=== PATIENT | male | born 1945 | race Caucasian/White ===

== ENCOUNTER → 2017-06-04 | Outpatient (CLI) | payer MEDICARE, BC ==
[~2017-06-04] MED LIST: ALPHAGAN 10 ML10 ML OU; ANTIVERT 25MG25 MG PO; ATROVENT NASAL15 ML NS; CENTRUM MEN'S; COREG 3.123.125 MG/T; COZAAR 25MG25 MG/TAB PO; ELIQUIS 2.5; ELIQUIS 5MG PO; FOSAMAX 70MG TA70 MG PO; KLONOPIN WAFE0.25 MG PO; LIPITOR20 MG PO; MUCINEX 60600 MG/TA1; PACERONE100 MG; PULMICORT0.25 MG/2 IH; REMERON 15M15 MG/TA1 PO; TIMOLOL MALEATE5 M1 OU; TRAVATAN Z 5 ML5 ML OU; VITAMIN D 1001000 IU PO; VITAMINC1000TA
[2017-06-04 10:55] LABS: HEMATOCRIT 41.2 % (42.0-52.0); HEMOGLOBIN 14.1 g/dl (13.5-18.0); MEAN CELL VOLUME 95 fl (80.0-100.0); MEAN CORPUSCULAR HEMOGLOBIN 33 pg (27.0-31.0); MEAN CORPUSCULAR HGB CONC 34 g/dl (33.0-37.0); MEAN PLATELET VOLUME 9.4 fl (7.4-10.4); PLATELET COUNT 120 K/mm3 (130-400); RED BLOOD COUNT 4.34 M/mm3 (4.20-5.60); REDCELL DISTRIBUTION WIDTH-CV 14.1 % (11.5-14.5); WHITE BLOOD COUNT 7.1 K/mm3 (4.8-10.8)
[2017-06-04 11:05] LABS: ANION GAP 7 mmol/L (7-16); BLOOD UREA NITROGEN 24 mg/dL (9-20); CALCIUM 9.3 mg/dL (8.4-10.2); CARBON DIOXIDE 29 mmol/L (22-30); CHLORIDE 103 mmol/L (98-107); CREATININE, serum 0.94 mg/dL (0.66-1.25); GLUCOSE 73 mg/dL (74-106); POTASSIUM 4.1 mmol/L (3.4-5.0); SODIUM 138 mmol/L (137-145)
[2017-06-04 11:17] LABS: B-TYPE NATRIURETIC PEPTIDE 3300 pg/mL (0-125); TROPONIN-I < 0.012 ng/mL (0.000-0.034)
== END ==
LOC: COL.RAD 10:03
PROVIDERS: Internal Medicine Interventional Cardiology
DX: J44.9 Chronic obstructive pulmonary disease, unspecified (principal); I50.32 Chronic diastolic (congestive) heart failure

== ENCOUNTER 2017-07-31 08:25 | Outpatient (CLI) | payer MEDICARE, BC ==
[2017-07-31] VITALS (7 sets, daily range): BP systolic 100–124; BP diastolic 62–92; PULSE 70–101; TEMP 97.6–98.1
[~2017-07-31 08:25] MED LIST changes: -CENTRUM MEN'S; -COREG 3.123.125 MG/T; -ELIQUIS 2.5; -ELIQUIS 5MG PO; -FOSAMAX 70MG TA70 MG PO; -PACERONE100 MG; -VITAMIN D 1001000 IU PO
[2017-07-31 10:33] LABS: INR 1.3 (0.8-3.0)
[2017-07-31 11:14] LABS: THYROID STIMULATING HORMONE 6.03 uIU/mL (0.465-4.680)
[2017-07-31] MEDS ORDERED: COREG 3.123.125 MG/T (11:24)
[2017-07-31] MEDS ORDERED: ELIQUIS 2.5 (11:25)
[2017-07-31] MEDS ORDERED: PACERONE100 MG (11:26)
[2017-07-31] MEDS ORDERED: CENTRUM MEN'S (11:37)
[2017-07-31] MEDS ORDERED: VITAMINC1000TA (11:40)
[2017-07-31] MEDS ORDERED: FOSAMAX 70MG TA70 MG PO (11:43)
[2017-07-31] MEDS ORDERED: ELIQUIS 5MG PO (11:53)
[2017-07-31] MEDS ORDERED: ATROVENT NASAL15 ML NS (12:04)
[2017-07-31] MEDS ORDERED: VITAMIN D 1001000 IU PO (12:13)
--- NOTE | 2017-07-31 12:20 | NUR ---
PT HAS LEFT FLOOR FOR KAELA/CARDIOVERSION
--- NOTE | 2017-07-31 14:13 | NUR ---
DR HARDIN HERE, ANESTHESIA AND ECHO HERE 1358-TIME OUT PERFORMED 1400- KAELA PROBE INSERTED WITHOUT DIFFICULTY AFTER PT SEDATED BY ANESTHESIA 1401-MULTIPLE IMAGES OBTAINED VIA KAELA 1406- SUCCESSFUL SYNCHRONISED CARDIOVERSION PERFORMED AT 100 J[address] 1412- ANESTHESIA OUT OF ROOM, PROCEDURE COMPLETE 1417-REPORT CALLED TO FLOOR NURSE
--- NOTE | 2017-07-31 14:15 | NUR ---
Pt has returned from procedure. Post op vitals to be monitored closely. Pt stable. Will continue to monitor.
--- NOTE | 2017-07-31 16:43 | NUR ---
Pt d/c home via wheelchair. Malgorzata accompanied pt and .
[2017-11-25] MEDS ORDERED: COREG 6.256.25 MG/TA PO (08:00)
[2017-11-25] MEDS ORDERED: KLONOPIN2 MG PO (08:16)
[2017-11-25] MEDS ORDERED: ASPIRIN 81M81 MG/TA2 PO (08:17)
[2017-11-25] MEDS ORDERED: ATROVENT NASAL15 ML NS (08:17)
[2017-11-25] MEDS ORDERED: VITAMINC1000TA PO (08:18)
[2017-11-25] MEDS ORDERED: CALCIUM CARBON650 M2 PO (08:18)
[2018-12-04] MEDS ORDERED: COUMADIN 1010 MG/TAB PO (11:27)
[2018-12-04] MEDS ORDERED: ASPIRIN E.C. 8181 MG PO (11:28)
[2018-12-06] MEDS ORDERED: BETAPACE 80MG80 MG PO (09:17)
== END 2017-07-31 16:44 | disposition home or self-care (01) ==
LOC: EUO 08:25 → MEDICAL 08:25 → EUO 16:44
PROVIDERS: Internal Medicine Interventional Cardiology
DX: I48.1 Persistent atrial fibrillation (principal); I25.10 Atherosclerotic heart disease of native coronary artery without angina pectoris; I50.9 Heart failure, unspecified; Z95.0 Presence of cardiac pacemaker; Z95.1 Presence of aortocoronary bypass graft; Z98.890 Other specified postprocedural states
CPT/HCPCS: OP; G9654; J2704; J7030

== ENCOUNTER → 2017-09-04 | Outpatient (CLI) | payer MEDICARE, BC ==
[~2017-09-04] MED LIST changes: +CENTRUM MEN'S; +COREG 3.123.125 MG/T; +ELIQUIS 2.5; +ELIQUIS 5MG PO; +FOSAMAX 70MG TA70 MG PO; +PACERONE100 MG; +VITAMIN D 1001000 IU PO
[2017-09-04 16:26] LABS: CALCIUM 8.7 mg/dL (8.4-10.2); CREATININE, serum 1.67 mg/dL (0.66-1.25); POTASSIUM 4.2 mmol/L (3.4-5.0)
== END ==
LOC: COL.LAB 15:28
PROVIDERS: Internal Medicine Cardiovascular Disease
DX: I48.1 Persistent atrial fibrillation (principal)

== ENCOUNTER → 2018-01-20 | Outpatient (CLI) | payer MEDICARE, BC ==
[~2018-01-20] MED LIST changes: +ASPIRIN 81M81 MG/TA2 PO; +CALCIUM CARBON650 M2 PO; +COREG 6.256.25 MG/TA PO; +KLONOPIN2 MG PO; +VITAMINC1000TA PO
[2018-01-20 08:56] LABS: CALCIUM 8.8 mg/dL (8.4-10.2); CREATININE, serum 1.14 mg/dL (0.66-1.25); POTASSIUM 4.6 mmol/L (3.4-5.0)
== END ==
LOC: COL.LAB 08:27
DX: I48.1 Persistent atrial fibrillation (principal)

== ENCOUNTER 2019-01-01 08:22 | Inpatient (IN) | payer MEDICARE, BC ==
[~2019-01-01] VITALS: Ht 182.9 cm; Wt 79.9 kg
[2019-01-01] VITALS (9 sets, daily range): BP systolic 94–123; BP diastolic 55–100; PULSE 58–91; TEMP 97.4–98.8
[~2019-01-01 08:22] MED LIST changes: +ASPIRIN E.C. 8181 MG PO; +BETAPACE 80MG80 MG PO; +COUMADIN 1010 MG/TAB PO
--- NOTE | 2019-01-01 09:15 | NUR ---
Pt arrived to room 317 ambulatory with admissions staff. Pt oriented to room and call light system. Will complete assessment. Pt's is at the bedside; all questions answered. Pt is sitting up in the chair at this time and he denies further needs. Call light within reach, will continue to monitor.
[2019-01-01 10:39] LABS: INR 3.4 (0.8-3.0); PROTHROMBIN TIME 38.3 SECONDS (9.7-12.8)
[2019-01-01 10:44] LABS: CALCIUM 8.6 mg/dL (8.4-10.2); CREATININE, serum 1.01 mg/dL (0.66-1.25); MAGNESIUM 2.1 mg/dL (1.6-2.3); POTASSIUM 4.1 mmol/L (3.4-5.0)
[2019-01-01 11:15] LABS: THYROID STIMULATING HORMONE 2.49 uIU/mL (0.465-4.680)
--- NOTE | 2019-01-01 14:53 | NUR ---
Pt left the floor at this time for procedure.
--- NOTE | 2019-01-01 15:03 | NUR ---
MEDICATIONS GIVEN BY ANESTHESIA. RN AT BEDSIDE TO MONITOR WELL, AND WILL RECEIVE HANDOFF FROM ANESTHESIA WHEN APPROPRIATE. SEE MERGE REPORT FOR BUGGYMAN TIMES. ULTRASOUND ALSO AT BEDSIDE FOR KAELA.
--- NOTE | 2019-01-01 16:00 | NUR ---
Pt returned to room 317 via bed. Pt is AXO X3 and he denies having any pain at this time. Pt's is at the bedside; all questions answered. Pt is sitting up in the bed watching TV at this time and he denies further needs. Call light within reach, will continue to monitor.
[2019-01-01] MEDS ORDERED: COUMADIN4 MG PO (17:56)
--- NOTE | 2019-01-01 18:14 | NUR ---
Pt has been resting on and off throughout the day. He has remained free of pain. He states he feels better this afternoon after cardioversion. Pt's has remained at the bedside; all questions answered. Pt is sitting up in the bed watching TV at this time and he denies further needs. Call light within reach.
--- NOTE | 2019-01-01 19:05 | NUR ---
Report received by Santana KEBEDE. Pt standing at bedside upon arrival of staff into room.
--- NOTE | 2019-01-01 19:46 | NUR ---
Report given to DELIO Aragon.
--- NOTE | 2019-01-01 22:00 | NUR ---
Pt assessment is complete. Pt ambulates independently in room with steady gait observed by this nurse. Pt has corrective eye glasses in place. Is wearing hospital gown with socks, shoes, jeans, and button up shirt at this time. Had some concerns expressed regarding home medications, and up to this time this shift patient theres has been ongoing communication between this nurse and pt regarding getting and obtaining orders and medications. Common agreement has been reached at this time. Pt reports having hopes of going home tomorrow per understanding from provider.
[2019-01-02 00:38] VITALS: BP 102/67; PULSE 66; TEMP 98
--- NOTE | 2019-01-02 04:00 | NUR ---
Pt called out for staff to assess temp due to "just not feeling good." Nurse entered the room with in minutes of call. Pt was sitting in a high fowlers position in bed with lights on. Observed face flushed. Temp was WNL. VS assessed- BP on the right arm showed SBP >180. BP was assessed on the left arm with SBP 158. Pt reports laying down flat just prior to new onset of not feeling well. Also mentioned feeling slightly "anxious". This nurse sat and talked with pt for 5-10 minutes when pt requested some orange juice. During conversation pts flushed face resolved and pt reported "feeling slightly better." Will recommend continuation to assess both arms with BP to note BP difference. Pt reported desire to continue staying sat up for a while.
[2019-01-02 04:33] VITALS: BP 99/77; PULSE 68; TEMP 98
--- NOTE | 2019-01-02 06:55 | NUR ---
Pt report provided to Peg KEBEDE. Pt resting in bed at this time.
--- NOTE | 2019-01-02 06:55 | NUR ---
Report recieved from DELIO Aragon. Patient resting in low and locked position, call light within reach. He denies needs at this time. Care assumed.
[2019-01-02 07:43] VITALS: BP 118/62; PULSE 58; TEMP 97.8
[2019-01-02 08:09] LABS: CALCIUM 8.9 mg/dL (8.4-10.2); CREATININE, serum 0.99 mg/dL (0.66-1.25); POTASSIUM 4.6 mmol/L (3.4-5.0)
--- NOTE | 2019-01-02 09:58 | NUR ---
Dr. Elizabeth called and clarification sought regarding need to continue MIVF. TORB to DC these as entered.
--- NOTE | 2019-01-02 11:15 | NUR ---
Post sotalol administration EKG completed at this time by RT.
[2019-01-02 13:00] VITALS: BP 110/58; PULSE 56; TEMP 98
--- NOTE | 2019-01-02 13:06 | NUR ---
Chaplain suarez and offered support with patient.
[2019-01-02 16:51] VITALS: BP 116/69; PULSE 60; TEMP 97.7
--- NOTE | 2019-01-02 17:38 | NUR ---
Dr. Elizabeth rounds on patient at this time. MD is asked to discuss POC with patient and regarding time of discharge. Patient states that MD told him he could DC home after 4th dose of sotalol and corresponding EKG. This would be after 2300 tonight. MD states he will speak with family and notify nurse of POC.
[2019-01-02] MEDS ORDERED: BETAPACE AF160 MG PO (17:51)
[2019-01-02 19:37] VITALS: BP 128/58; PULSE 67; TEMP 97.5
--- NOTE | 2019-01-02 20:06 | NUR ---
PT SITTING AT SIDE OF BED, DENIES PAIN OR DISCOMFORT AT THIS TIME. PT IS PARTIALLY DRESSED AND READY TO LEAVE AFTER EKG AT 10PM. NO NEEDS AT THIS TIME. CALL LIGHT WITHIN REACH.
--- NOTE | 2019-01-02 22:45 | NUR ---
EKG DONE AND QTc WAS 399 AND 426. REMOVED TELEMETRY AND IV FROM RIGHT FOREARM, CATHETER INTACT, PRESSURE APPLIED TILL BLEEDING STOPPED, AND PROTECTIVE DRSG APPLIED. PT TOOK ALL HIS PAPERWORK AND PERSONAL BELONGINGS. WENT OVER MEDICATIONS WITH PT AND . PT LEFT WITH . PT INSISTED TO WALK DOWN. W/C OFFERED, BUT REFUSED. PT'S GAIT STEADY AND NO ASSISTIVE DEVICES. PT ADVISED THAT HE FELT FINE. NO FURTHER NEEDS.
== END 2019-01-02 22:45 | disposition home or self-care (01) | DRG 309 ==
LOC: MEDICAL 08:22
PROVIDERS: ADMIT Internal Medicine Interventional Cardiology
PROC: 5A2204Z Restoration of Cardiac Rhythm, Single (ICD-10-PCS; principal; 2019-01-01)
DX: I48.0 Paroxysmal atrial fibrillation (principal); I50.32 Chronic diastolic (congestive) heart failure; Z95.0 Presence of cardiac pacemaker; I25.10 Atherosclerotic heart disease of native coronary artery without angina pectoris; Z87.891 Personal history of nicotine dependence
CPT/HCPCS: J2704; J7030

== ENCOUNTER → 2019-02-16 | Outpatient (CLI) | payer MEDICARE, BC ==
[~2019-02-16] MED LIST changes: +BETAPACE AF160 MG PO; +COUMADIN4 MG PO
[2019-02-16 15:36] LABS: HEMATOCRIT 43.3 % (42.0-52.0); HEMOGLOBIN 14.1 g/dl (13.5-18.0); MEAN CELL VOLUME 97 fl (80.0-100.0); MEAN CORPUSCULAR HEMOGLOBIN 32 pg (27.0-31.0); MEAN CORPUSCULAR HGB CONC 33 g/dl (33.0-37.0); MEAN PLATELET VOLUME 9.8 fl (7.4-10.4); PLATELET COUNT 110 K/mm3 (130-400); RED BLOOD COUNT 4.45 M/mm3 (4.20-5.60); REDCELL DISTRIBUTION WIDTH-CV 14.5 % (11.5-14.5)
[2019-02-16 15:49] LABS: ANION GAP 6 mmol/L (7-16); BLOOD UREA NITROGEN 23 mg/dL (9-20); C-REACTIVE PROTEIN 1.3 mg/dL (0.0-0.9); CALCIUM 9.1 mg/dL (8.4-10.2); CARBON DIOXIDE 31 mmol/L (22-30); CHLORIDE 102 mmol/L (98-107); GLUCOSE 81 mg/dL (74-106); SODIUM 140 mmol/L (137-145)
[2019-02-16 15:58] LABS: TROPONIN-I < 0.012 ng/mL (0.000-0.035)
[2019-02-16 16:07] LABS: ERYTHROCYTE SEDIMENTATION RATE 9 mm/hr (0-30)
== END ==
LOC: COL.LAB 15:16
PROVIDERS: Internal Medicine Interventional Cardiology
DX: I48.0 Paroxysmal atrial fibrillation (principal); Z95.810 Presence of automatic (implantable) cardiac defibrillator; J92.9 Pleural plaque without asbestos

== ENCOUNTER 2019-08-02 07:28 | Outpatient (CLI) | payer MEDICARE, BC ==
[~2019-08-02] VITALS: Ht 182.9 cm; Wt 76.4 kg
[2019-08-02 08:04] VITALS: BP 107/62; PULSE 78; TEMP 98
[2019-08-02] MEDS ORDERED: COREG12.5 MG PO (09:15)
[2019-08-02] MEDS ORDERED: DIGITEK0.25 MG PO (09:17)
[2019-08-02] MEDS ORDERED: LASIX 40MG TABL40 MG PO (09:18)
[2019-08-04 18:43] LABS: ADRENOCORTICOTROPIC HORMONE 53 pg/mL (5-27)
== END 2019-08-02 09:22 | disposition home or self-care (01) ==
LOC: EUO 07:28
PROVIDERS: Internal Medicine Interventional Cardiology
DX: I95.9 Hypotension, unspecified (principal)
CPT/HCPCS: J0834

== ENCOUNTER → 2019-10-27 | Outpatient (CLI) | payer MEDICARE, BC ==
[~2019-10-27] MED LIST changes: +COREG12.5 MG PO; +DIGITEK0.25 MG PO; +LASIX 40MG TABL40 MG PO
== END ==
LOC: COL.RAD 08:09
DX: E04.9 Nontoxic goiter, unspecified (principal); D35.2 Benign neoplasm of pituitary gland; Z95.0 Presence of cardiac pacemaker
CPT/HCPCS: A9585

== ENCOUNTER 2020-08-25 09:59 | Day surgery (SDC) | payer MEDICARE, BC ==
[~2020-08-25] VITALS: Ht 182.9 cm; Wt 70.9 kg
[~2020-08-25 09:59] MED LIST changes: +LOVENOX 8080 MG/0.8 SQ; +REMERON30 MG PO
[2020-08-25 10:34] VITALS: BP 133/73; PULSE 84; TEMP 97.7
[2020-08-25] MEDS ORDERED: LEXAPRO 10MG10 MG PO (10:53)
--- NOTE | 2020-08-25 10:55 | NUR ---
CALL LIGHT IN REACH WILL CALL FOR RIDE HOME.
[2020-08-25 12:00] VITALS: BP 121/82; PULSE 73; TEMP 97.5
[2020-08-25 12:15] VITALS: BP 130/74; PULSE 74
--- NOTE | 2020-08-25 12:15 | NUR ---
Pt tolerating food and fluids without difficulties. Will continue to monitor. Call light within reach.
[2020-08-25 12:30] VITALS: BP 137/69; PULSE 69
--- NOTE | 2020-08-25 12:30 | NUR ---
Pt continues to rest. IV site discontinued with all parts intact. Will continue to monitor.
--- NOTE | 2020-08-25 13:00 | NUR ---
Discharge instructions reviewed. Pt voices understanding. Pt escorted to private car via wheel chair. Pt accompanied home by his .
== END 2020-08-25 13:00 | disposition home or self-care (01) ==
LOC: SDCO 09:59
DX: Z12.11 Encounter for screening for malignant neoplasm of colon (principal); Z86.010 Personal history of colon polyps; D12.5 Benign neoplasm of sigmoid colon; D12.2 Benign neoplasm of ascending colon; D12.3 Benign neoplasm of transverse colon; E78.5 Hyperlipidemia, unspecified; F32.9 Major depressive disorder, single episode, unspecified; I48.91 Unspecified atrial fibrillation; K21.9 Gastro-esophageal reflux disease without esophagitis; I25.10 Atherosclerotic heart disease of native coronary artery without angina pectoris; I50.9 Heart failure, unspecified; Z95.1 Presence of aortocoronary bypass graft; Z87.891 Personal history of nicotine dependence; G47.33 Obstructive sleep apnea (adult) (pediatric); Z88.0 Allergy status to penicillin; M19.90 Unspecified osteoarthritis, unspecified site
CPT/HCPCS: J2704; J7120

== ENCOUNTER → 2021-03-27 | Outpatient (CLI) | payer MEDICARE, BC ==
[~2021-03-27] MED LIST changes: +LEXAPRO 10MG10 MG PO
== END ==
LOC: COL.RAD 08:30
DX: I51.7 Cardiomegaly (principal); N28.89 Other specified disorders of kidney and ureter; K55.9 Vascular disorder of intestine, unspecified
CPT/HCPCS: Q9967

== ENCOUNTER → 2021-08-09 | Outpatient (CLI) | payer MEDICARE, BC | LOC: COL.RAD 07-19 09:00 | DX: D35.2 Benign neoplasm of pituitary gland (principal) | CPT/HCPCS: A9585 ==

== ENCOUNTER → 2022-03-05 | Outpatient (CLI) | payer MEDICARE, BC ==
[2022-03-05 14:37] LABS: ALBUMIN 3.6 gm/dL (3.4-4.8); BILIRUBIN,TOTAL 1.9 mg/dL (0.2-1.2); CREATININE, serum 0.98 mg/dL (0.72-1.25); POTASSIUM 4.3 mmol/L (3.5-4.5); TOTAL PROTEIN 7.2 gm/dL (6.2-8.1); TROPONIN-I 0.01 ng/mL (0.00-0.033)
== END ==
LOC: ZCOL.LAB 14:35
PROVIDERS: Nurse Practitioner
DX: R06.02 Shortness of breath (principal)

== ENCOUNTER 2022-03-20 13:09 | Emergency (ER) | payer MEDICARE, BC ==
[~2022-03-20] VITALS: Ht 198.1 cm; Wt 70.5 kg
[2022-03-20 13:33] VITALS: TEMP 97
[2022-03-20 14:49] LABS: PROTHROMBIN TIME 44.5 SECONDS (9.7-12.8)
[2022-03-20 16:52] LABS: HEMOGLOBIN 10.7 g/dl (13.5-18.0)
[2022-03-20 16:54] LABS: HEMATOCRIT 33.4 % (42.0-52.0)
[2022-03-20 18:35] VITALS: BP 134/76; PULSE 102
== END 2022-03-20 18:35 | disposition home or self-care (01) ==
LOC: COL.ER 13:09
PROVIDERS: Nurse Practitioner Family
DX: R04.0 Epistaxis (principal); Z79.01 Long term (current) use of anticoagulants

== ENCOUNTER 2023-01-16 14:07 | Outpatient (RCR) | payer MEDICARE, BC | END 2023-01-21 | disposition home or self-care (01) | LOC: COL.CR | DX: I34.0 Nonrheumatic mitral (valve) insufficiency (principal) ==

== ENCOUNTER 2023-02-20 14:24 | Outpatient (RCR) | payer MEDICARE, BC ==
[~2023-02-20] VITALS: Ht 182 cm; Wt 64.9 kg
== END 2023-02-21 | disposition home or self-care (01) ==
LOC: COL.CR
DX: I34.0 Nonrheumatic mitral (valve) insufficiency (principal)

== ENCOUNTER 2023-03-20 15:00 | Outpatient (RCR) | payer MEDICARE, BC | END 2023-03-23 | disposition home or self-care (01) | LOC: COL.CR | DX: I34.0 Nonrheumatic mitral (valve) insufficiency (principal) ==

== ENCOUNTER 2023-04-22 15:30 | Outpatient (RCR) | payer MEDICARE, BC | END 2023-04-23 | disposition home or self-care (01) | LOC: COL.CR | DX: I34.0 Nonrheumatic mitral (valve) insufficiency (principal) ==

== ENCOUNTER 2023-11-27 15:04 | Inpatient (IN) | payer MEDICARE, BC ==
[~2023-11-27] VITALS: Ht 180.3 cm; Wt 61.9 kg
[2023-11-27] VITALS (320 sets, daily range): BP systolic 89; BP diastolic 48; PULSE 94; TEMP 99; O2SAT 94–100
[~2023-11-27 15:04] MED LIST changes: +ALPHAGAN 10 ML10 ML OD; -ALPHAGAN 10 ML10 ML OU; +TIMOLOL MALEATE5 M1 OD; -TIMOLOL MALEATE5 M1 OU; +TRAVATAN Z 5 ML5 ML OD; -TRAVATAN Z 5 ML5 ML OU
[2023-11-27 15:44] LABS: BASO % 0.4 % (0.0-2.0); EOS % 0.9 % (0.0-4.0); GRAN # 3.7 K/mm3 (1.4-6.5); GRAN % 79.2 % (42.2-75.2); HEMATOCRIT 50.2 % (42.0-52.0); INR 3.3 (0.8-3.0); LYMPH # 0.5 K/mm3 (1.2-3.4); LYMPH % 10.1 % (20.0-51.0); MEAN CELL VOLUME 109 fl (80.0-100.0); MEAN CORPUSCULAR HEMOGLOBIN 35 pg (27-31); MEAN CORPUSCULAR HGB CONC 32 g/dl (33.0-37.0); MONO # 0.4 K/mm3 (0.1-0.6); MONO % 9.2 % (1.7-9.3); PLATELET COUNT 125 K/mm3 (130-400); PROTHROMBIN TIME 35.1 SECONDS (9.7-12.8); RED BLOOD COUNT 4.59 M/mm3 (4.20-5.60)
[2023-11-27 15:53] LABS: ALBUMIN 3.7 gm/dL (3.4-4.8); BILIRUBIN,TOTAL 1.5 mg/dL (0.2-1.2); CALCIUM 9.3 mg/dL (8.4-10.2); CREATININE, serum 1.13 mg/dL (0.72-1.25); POTASSIUM 4.8 mmol/L (3.5-4.5); TOTAL PROTEIN 7.4 gm/dL (6.2-8.1)
[2023-11-27 15:59] LABS: TROPONIN-I 0.02 ng/mL (0.00-0.033)
[2023-11-27] MEDS ORDERED: COUMADIN 6MG6 MG/TAB PO (16:10)
[2023-11-27] MEDS ORDERED: ENTRESTO 49 MG1 EACH PO (16:14)
[2023-11-27] MEDS ORDERED: JARDIANCE10 PO (16:14)
[2023-11-27] MEDS ORDERED: ASPIRIN 81M81 MG/TA2 PO (16:15)
[2023-11-27] MEDS ORDERED: VITAMIN C500 MG PO (16:20)
[2023-11-27] MEDS ORDERED: NATURAL IRON65 MG PO (16:20)
[2023-11-27] MEDS ORDERED: PULMICORT0.25 MG/2 IH (16:21)
[2023-11-27] MEDS ORDERED: BROVANA15 MCG/2 M IH (16:22)
[2023-11-27] MEDS ORDERED: TRUSOPT OCUMETE10 ML OD (16:23)
[2023-11-27] MEDS ORDERED: VITAMIN D31000 I1 PO (16:32)
[2023-11-27 16:57] LABS: COLLECTION METHOD CLEAN CATCH
[2023-11-27 17:12] LABS: PH 5.5 (5.0-8.5); URINE APPEARANCE Clear (CLEAR/HAZY); URINE BLOOD 1+ (NEGATIVE); URINE COLOR Yellow (YELLOW); URINE GLUCOSE 3+ (NEGATIVE); URINE KETONE Negative (NEGATIVE); URINE NITRATE Negative (NEGATIVE); URINE PROTEIN(semi-quant) 2+ (NEGATIVE); URINE UROBILINOGEN 0.2 E.U/dL (0.2-1.0)
[2023-11-27 17:59] LABS: ARTERIAL BLD GAS TCO2 CT 31.8; ARTERIAL BLOOD GAS BASE EXCESS 2.3 (-2-2); ARTERIAL BLOOD GAS PCO2 58.5 mmHg (35-45); ARTERIAL BLOOD GAS PO2 97.3 mmHg (80-100); ARTERIAL BLOOD GAS pH 7.33 (7.35-7.45)
[2023-11-27 18:05] LABS: SQUAMOUS EPITHELIAL 0-2 /hpf (0-10); URINE BACTERIA None Seen /hpf (NONE SEEN); URINE RBC 0-2 /hpf (0-2)
--- NOTE | 2023-11-27 18:10 | NUR ---
RECEIVED REPORT FROM ED RN, KAILA VIA PHONE CALL AT [phone]. PATIENT ACCOMPANIED TO UNIT BY ED STAFF VIA STRETCHER AND RT. PATIENT ARRIVED TO UNIT AT 1805. PATIENT BIPAP DEPENDENT AT THIS TIME. PATIENT GAVE VERBAL CONSENT FOR CENTRAL LINE PLACEMENT. DR. HUNT AT BEDSIDE TO PLACE CENTRAL LINE. PATIENT'S FAMILY IN WAITING ROOM. ASSESSMENTS COMPLETED. PATIENT SITUATED INTO ICU BED. DR. MORE & DR. LOVELACE NOTIFIED OF PATIENT'S ARRIVAL.
--- NOTE | 2023-11-27 19:15 | NUR ---
REPORT RECEIVED FROM DELIO HAWKINS. PATIENT HAS BIPAP ON AND BREATHING 40 TIMES PER MINUTE. PATIENT IS EXTREMELY ANXIOUS. FAMILY IS AT BEDISDE. DR. LOVELACE IS AT BEDSIDE EVALUATING PATIENT. PER DR. LOVELACE OK TO START PRECEDEX AT THIS TIME WITHOUT A BOLUS. PATIENT NOTED TO BE IN AFIB IN THE 120'S. AMIO DRIP IS RUNNING AT THIS TIME.
--- NOTE | 2023-11-27 20:45 | NUR ---
PATIENT IS EXTREMELY RESTLESS AND PULLING BIPAP OFF. FAMILY AT BEDSIDE WANTING TO REMOVE BIPAP TO GIVE THE PATIENT A BREAK STATING THAT IT IS UNCOMFORTABLE FOR HIM. RESPIRATORY THERAPIST CONTACTED IN REGARDS TO BIPAP. THE PATIENT IS ON A PRECEDEX DRIP TO HELP WITH ANXIETY/AGGITATION. SEE TITRATION INTERVENTION. THE PATIENT IS ALSO NOTED TO HAVE A SYSTOLIC BLOOD PRESSURE IN THE 80'S. HOSPITALIST, LATRELL, NOTIFIED IN REGARDS TO AGITATION, BLOOD PRESSURE, AND PATIENT STATUS. ORAL SAMS, TO COME TO BEDSIDE TO EVALUATE PATIENT. RESPIRATORY THERAPIST PLACED PATIENT ON OXYMASK AT 5L WITH PLANS TO PLACE BIPAP BACK ON ONCE PATIENT IS LESS AGITATED. FAMILY STATED THAT THEY KNOW THE BIPAP IS HELPING THE PATIENT BUT IF HE IS NOT ABLE TO TOLERATE THEY FEEL THE OXYMASK WILL BE OK.
[2023-11-28] VITALS (1308 sets, daily range): BP systolic 85–122; BP diastolic 55–79; PULSE 69–82; TEMP 97–98.2; O2SAT 88–100
[2023-11-28 05:37] LABS: ARTERIAL BLD GAS O2 SATURATION 98.7 % (92-100); ARTERIAL BLD GAS TCO2 CT 35.5; ARTERIAL BLOOD GAS BASE EXCESS 6.1 (-2-2); ARTERIAL BLOOD GAS HCO3 33.6 meq/L (22-26); ARTERIAL BLOOD GAS PCO2 59.9 mmHg (35-45); ARTERIAL BLOOD GAS pH 7.37 (7.35-7.45)
[2023-11-28 05:38] LABS: ARTERIAL BLOOD GAS PO2 139.4 mmHg (80-100)
[2023-11-28 05:49] LABS: HEMATOCRIT 44.4 % (42.0-52.0); HEMOGLOBIN 14.7 g/dl (13.5-18.0); MEAN CELL VOLUME 105 fl (80.0-100.0); MEAN CORPUSCULAR HEMOGLOBIN 35 pg (27-31); MEAN CORPUSCULAR HGB CONC 33 g/dl (33.0-37.0); PLATELET COUNT 110 K/mm3 (130-400); RED BLOOD COUNT 4.23 M/mm3 (4.20-5.60)
[2023-11-28 05:52] LABS: INR 3.3 (0.8-3.0); PROTHROMBIN TIME 34.5 SECONDS (9.7-12.8)
[2023-11-28 06:07] LABS: C-REACTIVE PROTEIN 4.82 mg/dL (0.00-0.50); CALCIUM 8.8 mg/dL (8.4-10.2); CREATININE, serum 1.16 mg/dL (0.72-1.25); MAGNESIUM 2.1 mg/dL (1.6-2.6); POTASSIUM 4.4 mmol/L (3.5-4.5)
[2023-11-28 06:12] LABS: BAND 20 % (0-10); LYMPHOCYTE 3 % (20.0-51.0); NEUTROPHILS 73 % (42.0-75.2); PLATELET ESTIMATE NORMAL (NORMAL)
--- NOTE | 2023-11-28 07:00 | NUR ---
Report received from DELIO Lynn. Pt remains on Bipap and on precedex gtt. Pt appears to be resting comfortably at this time. No s/s discomfort. Pt able to wake with ease and answer questions. Not oriented to place and time. Call light in reach and bed alarm on.
--- NOTE | 2023-11-28 10:01 | NUR ---
Pets And Pet Supplies Salesperson met with patient's family in the waiting room as patient is currently on precedex and bipap. This includes Rosio (ph#[phone]), son Inocente (ph#[phone]), daughter Stella (ph#[phone]), and son Jomar (ph#[phone]). Patient and Rosio live in [place] and patient sees Dr. Sweeney for primary care. Patient obtains medications from [facility] with no difficulties. Patient does not use any DME for ambulation in the home, but has a walker and cane available for when he is outside of the home. Patient has grab bars and a shower seat in the bathroom. Rosio also advised patient uses a nebulizer twice a day. Rosio advised she assists patient with ADLS like bathing. Patient has DPOA-HC in EMR designating his as primary agent. Discharge Plan: TBD
--- NOTE | 2023-11-28 10:18 | NUR ---
Initial visit; Patient resting, Coverstitch Machine Operator visited family who were in "Waiting Room." A nurse let Coverstitch Machine Operator know they were called for a 'family meeting' and were waiting for Physician to see how patient could breathe. Coverstitch Machine Operator spoke with family and offered comfort and encouragement along with seeing if they would like prayer. They agreed they would appreciate prayer. They all thanked Coverstitch Machine Operator for prayer and offering God's blessings and her presence when needed.
--- NOTE | 2023-11-28 13:00 | NUR ---
Palliative care consulted completed at this time. Yian (CATHIE) & this RN present at bedside with patient's & 3 sons; daughter on speaker phone. Discussed reason for palliative care consult. Reviewed medical diagnosis & problems per Hospitalist & Core Maker Helper progress notes. Discussed code status; patient & family all agree about DNR/DNI as ordered. Discussed bipap use; patient verbalized that he did not like the bipap use last night stating "I prayed to God to take me." Discussed current treatments for patient & should the patient not make improvements the treatments that they would not want. Patient adamant that he does not want the bipap used anymore & family supportive of his request. Patient & family in agreement that current plan of care is appropriate, but that they will likely not escalate care should the patient decline further (i.e. adding another vaopressor). Son asked what next step would be to get the patient out of ICU; discussed need for clinical improvement to include the patient not needing a vasopressor to maintain BP. Briefly touched on if continued improvement once moved to M/S floor then CATHIE would work on safe discharge plan for patient. Discussed comfort measures as an option briefly should the patient decline; family supportive should the time come in the future. Family would like to discuss any future aggressive additions to treatment should the need arise. When patient asked if he had any goals & he stated that he wanted to celebrate his birthday on [birth year]; also discusssed other family life events. Support offered & primary RN updated.
--- NOTE | 2023-11-28 13:48 | NUR ---
Billboard Installer attended palliative care consultation led by Sophie, ICU Director. Patient's , two sons, and son in law were at bedside and patient's daughter participated by phone. Goals of care were discussed along with current treatment plan. Patient is clear that he does not want to be on bipap again and family is supportive of this. Patient and family agree to no heroic efforts, but to continue current treatments.
[2023-11-29] VITALS (870 sets, daily range): BP systolic 92–129; BP diastolic 60–79; PULSE 77–87; TEMP 97.4–98.3; O2SAT 66–100
[2023-11-29 05:39] LABS: HEMATOCRIT 41.8 % (42.0-52.0); HEMOGLOBIN 13.9 g/dl (13.5-18.0); MEAN CELL VOLUME 104 fl (80.0-100.0); MEAN CORPUSCULAR HEMOGLOBIN 35 pg (27-31); MEAN CORPUSCULAR HGB CONC 33 g/dl (33.0-37.0); MEAN PLATELET VOLUME 10.3 fl (7.4-10.4); PLATELET COUNT 126 K/mm3 (130-400); RED BLOOD COUNT 4.01 M/mm3 (4.20-5.60); REDCELL DISTRIBUTION WIDTH-CV 14.9 % (11.5-14.5)
[2023-11-29 05:43] LABS: INR 2.6 (0.8-3.0); PROTHROMBIN TIME 27.5 SECONDS (9.7-12.8)
[2023-11-29 05:59] LABS: C-REACTIVE PROTEIN 6.56 mg/dL (0.00-0.50); PHOSPHOROUS 5.1 mg/dL (2.3-4.7)
[2023-11-29 06:21] LABS: ANISOCYTOSIS 1+; BAND 15 % (0-10); NEUTROPHILS 84 % (42.0-75.2); PLATELET ESTIMATE NORMAL (NORMAL)
--- NOTE | 2023-11-29 10:14 | NUR ---
Data: Another Banana Handler requested that this Banana Handler follow-up with Patient's Family. This Banana Handler found Patient's Family in ICU waiting area. Assessment: Family has a strong julieta background in [place] [employer]. Family is welcoming of all prayers. Plan of Care: This Banana Handler prayed for Family and for Patient's healing.
[2023-11-29 12:20] LABS: CALCIUM 8.8 mg/dL (8.4-10.2); CREATININE, serum 1.31 mg/dL (0.72-1.25); POTASSIUM 5.2 mmol/L (3.5-4.5)
--- NOTE | 2023-11-29 15:50 | NUR ---
Transfered upstairs to the medical floor via wheelchair; tolerated well. Alert and oriented per baseline and in no distress upon transfer.
--- NOTE | 2023-11-29 16:00 | NUR ---
PATIENT TRASNFERED FROM ICU , PATIENT ARRIVED TO UNIT IN STABLE CONDITION. HIS FAMILY IS AT BEDSIDE. PATIENT DENIES ANY NEEDS OR COMPLAINTS AT THIS TIME. CALL LGHT WITHIN REACH, BED ALARM ON.
[2023-11-30] VITALS (7 sets, daily range): BP systolic 101–122; BP diastolic 55–74; PULSE 83–94; TEMP 97.4–98.2
--- NOTE | 2023-11-30 07:00 | NUR ---
PATINET AWAKE AND ALERT, SITTING UP IN BED. PATIENT DENIES ANY NEEDS OR COMPLAINTS AT THIS TIME. CALL LIGHT WITHIN REACH, FALL PRECAUTINS INPLACE
[2023-11-30 07:45] LABS: BASO % 0.1 % (0.0-2.0); GRAN # 10.1 K/mm3 (1.4-6.5); GRAN % 94.2 % (42.2-75.2); HEMOGLOBIN 13.9 g/dl (13.5-18.0); LYMPH # 0.2 K/mm3 (1.2-3.4); LYMPH % 1.6 % (20.0-51.0); MEAN CELL VOLUME 105 fl (80.0-100.0); MEAN CORPUSCULAR HEMOGLOBIN 35 pg (27-31); MEAN CORPUSCULAR HGB CONC 33 g/dl (33.0-37.0); MEAN PLATELET VOLUME 10.2 fl (7.4-10.4); MONO # 0.3 K/mm3 (0.1-0.6); MONO % 2.7 % (1.7-9.3); PLATELET COUNT 95 K/mm3 (130-400); REDCELL DISTRIBUTION WIDTH-CV 14.7 % (11.5-14.5)
[2023-11-30 07:52] LABS: ALBUMIN 2.9 gm/dL (3.4-4.8); BILIRUBIN,TOTAL 1.2 mg/dL (0.2-1.2); CALCIUM 8.4 mg/dL (8.4-10.2); CREATININE, serum 1.1 mg/dL (0.72-1.25)
--- NOTE | 2023-11-30 17:41 | NUR ---
SRINI AWAKE AND ALERT, SITTING UP IN RECLINER. PATIENT DENIES ANY NEEDS OR COMPLAINTS AT THIS TIME. CHAIR ALARM ON. PATIENT HAS MULTIPLE FAMILY MEMBERS AT BEDSIDE. CALL LIGHT WITHIN REACH, FALL PRECAUTIONS IN PLACE.
[2023-12-01 03:56] VITALS: BP 147/83; PULSE 96; TEMP 97.9
[2023-12-01 06:31] LABS: HEMATOCRIT 44.2 % (42.0-52.0); HEMOGLOBIN 14.4 g/dl (13.5-18.0); MEAN CELL VOLUME 107 fl (80.0-100.0); MEAN CORPUSCULAR HEMOGLOBIN 35 pg (27-31); MEAN CORPUSCULAR HGB CONC 33 g/dl (33.0-37.0); MEAN PLATELET VOLUME 10.8 fl (7.4-10.4); PLATELET COUNT 84 K/mm3 (130-400); RED BLOOD COUNT 4.15 M/mm3 (4.20-5.60); REDCELL DISTRIBUTION WIDTH-CV 14.6 % (11.5-14.5)
[2023-12-01 06:42] LABS: CALCIUM 8.7 mg/dL (8.4-10.2); CREATININE, serum 0.97 mg/dL (0.72-1.25); POTASSIUM 5.3 mmol/L (3.5-4.5)
[2023-12-01 06:46] LABS: INR 2.5 (0.8-3.0); PROTHROMBIN TIME 26.5 SECONDS (9.7-12.8)
[2023-12-01 07:28] LABS: BAND 18 % (0-10); LYMPHOCYTE 1 % (20.0-51.0); NEUTROPHILS 80 % (42.0-75.2); PLATELET ESTIMATE DECREASED (NORMAL)
[2023-12-01 07:46] VITALS: BP 153/86; PULSE 100; TEMP 97.8
--- NOTE | 2023-12-01 08:10 | NUR ---
PT SITTING IN BED EATING BREAKFAST UPON ENTERING. ASSESSMENT DONE. LOKELMA AND EYE DROPS GIVEN, WILL GIVE ORAL MEDS IN 2 HOURS PER LOKELMA ORDER. PT DENIES PAIN BUT REPORTS "UPSET STOMACH", PT DENIES NAUSEA BUT IS HAVING TROUBLE DESCRIBING STOMACH DISCOMFORT. RIGHT FOREARM INT FLUSHES WELL WITHOUT COMPLICATIONS. RIGHT SUBCLAVIAN TRIPLE LUMEN DRESSING CLEAN DRY AND INTACT. BLUE AND BROWN PORTS FLUSH WELL WITH BLOOD RETURN. WHITE PORT FLUSHES WELL WITH NO BLOOD RETURN, PT REPOSITIONED AND PORT STILL NOT FLUSHING. ANTIBIOTIC STARTED PER ORDER IN BLUE PORT. PT ON 2L NASAL CANNULA AND DENIES BEING SHORT OF BREATH AT THIS TIME. PTS OVERALL SKIN IN DRY WITH SCATTERED BRUISING NOTED TO EXTREMITIES. CRACKLES HEARD TO BILATERAL BASES DURING ASSESSMENT. PT DENIES NEEDS AT THIS TIME. BED IN LOWEST POSITION, CALL LIGHT IN REACH.
--- NOTE | 2023-12-01 09:44 | NUR ---
PT ANTIBIOTIC COMPLETE, BLUE PORT FLUSHED. PT IN CHAIR AND DENIES NEEDS AT THIS TIME. PTS ASKED THIS NURSE TO TALK TO SOCIAL WORK, THIS NURSE NOT TOLD SPECIFIC REASON. HEATH FROM SOCIAL WORK NOTIFIED
[2023-12-01 12:00] VITALS: BP 138/83; PULSE 96; TEMP 97.9
--- NOTE | 2023-12-01 13:15 | NUR ---
PT WITH SPEECH FOR SWALLOW STUDY. PT TAKEN VIA WHEELCHAIR ON 2L NASAL CANNULA
--- NOTE | 2023-12-01 13:16 | NUR ---
sheltered workshop worker was notified patient and his would like to speak with the manager social work regarding discharge plans. SW met with the patient and his . Patient's is concerned about being able to care for patient when he returns home. Patient and his would like patient to go to SNF prior to returning home. SW presented the Medicare.gov list of options for SNF in the area. Patient and his would like a referral sent to [facility] and [facility]. SW faxed a referral to [facility] and [facility]. SW was notified [facility] is unable to accept at this time. SW was notified [facility] does not currently have any openings but would like to continue to follow patient's care in case they have an opening before patient discharges. Discharge plan: SNF
--- NOTE | 2023-12-01 14:45 | NUR ---
THIS NURSE WALKED IN TO GIVE PT EYEDROPS. PTS ROOM FULL WITH GUESTS AND THIS NURSE NOTIFIED PT AND FAMILY THAT I WILL COME BACK TO GIVE EYDROPS, PT OKAY WITH THIS
[2023-12-01 15:31] VITALS: BP 107/57; PULSE 85; TEMP 98.1
--- NOTE | 2023-12-01 18:23 | NUR ---
PT LAYING IN BED UPON ENTERING. PT GIVEN MED CRUSHED WITH APPLESAUCE, PT REMINDED TO TUCK HIS CHIN WITH SWALLOWING PER SPEECH RECS. NO COUGHING DURING. PT DENIES NEEDS AT THIS TIME. BED IN LOWEST POSITION, CALL LIGHT IN [facility], BED ALARM ON
--- NOTE | 2023-12-01 18:45 | NUR ---
ENT CONSULT CALLED INTO NURSE WORKING ON ANSWERING SERVICE. CALLBACK NUMBER GIVEN
--- NOTE | 2023-12-01 18:56 | NUR ---
REPORT GIVEN TO DELIO GUERIN
--- NOTE | 2023-12-01 19:30 | NUR ---
PATIENT RESTING WITH EYES CLOSED IN BED WITH TV ON WITH NO FAMILY PRESENT WITH NO ACUTE DISTRESS NOTED. PATIENT ON 2 LITERS OF OXYGEN VIA NC. RIGHT TRIPLE LUMEN IJ INTACT, CLEAN, AND DRY. ASSESSMENT COMPLETED. PATIENT TOLERATED WELL. PATIENT DENIES ANY NEEDS. URINAL GIVEN TO PATIENT FOR UA. PATIENT VERBALIZED UNDERSTANDING TO CALL ONCE HE VOIDED. BED IN LOW POSITION WITH WHEELS LOCKED WITH RAILS UP X3 AND CALL LIGHT WITHIN REACH.
[2023-12-01 20:00] VITALS: BP 111/70; PULSE 70; TEMP 97.4
--- NOTE | 2023-12-01 21:45 | NUR ---
CENTRAL LINE RIGHT IJ PORTS FLUSHED AND ASPIRATED. PURPLE AND BLUE HAD BLOOD RETURN. WHITE PORT NOTED TO GIVE NO BLOOD RETURN.
--- NOTE | 2023-12-01 22:07 | NUR ---
PATIENT RESTING IN BED WITH TV OFF WITH NO ACUTE DISTRESS NOTED. PATIENT ON 2 LITERS OF OXYGEN VIA NC. MEDICATION ADMINISTRATION COMPLETED AT THIS TIME. PATIENT TOLERATED WELL. PATIENT DENIES ANY NEEDS AT THIS TIME. BED IN LOW POSITION WITH WHEELS LOCKED WITH RAILS UP X3 AND CALL LIGHT WTIHIN REACH.
[2023-12-02] VITALS (8 sets, daily range): BP systolic 110–136; BP diastolic 61–83; PULSE 84–100; TEMP 97.1–97.9
[2023-12-02 00:01] LABS: COLLECTION METHOD IN
[2023-12-02 00:20] LABS: MUCOUS Present (NOT PRESENT); PH 5.5 (5.0-8.5); SQUAMOUS EPITHELIAL 0-2 /hpf (0-10); URINE APPEARANCE Clear (CLEAR/HAZY); URINE BACTERIA Rare /hpf (NONE SEEN); URINE BLOOD Negative (NEGATIVE); URINE COLOR Yellow (YELLOW); URINE GLUCOSE 2+ (NEGATIVE); URINE KETONE Negative (NEGATIVE); URINE NITRATE Negative (NEGATIVE); URINE PROTEIN(semi-quant) TRACE (NEGATIVE); URINE RBC 0-2 /hpf (0-2); URINE UROBILINOGEN 0.2 E.U/dL (0.2-1.0)
[2023-12-02 07:54] LABS: BASO % 0.1 % (0.0-2.0); GRAN # 8.4 K/mm3 (1.4-6.5); GRAN % 89.6 % (42.2-75.2); HEMATOCRIT 42.4 % (42.0-52.0); HEMOGLOBIN 14.1 g/dl (13.5-18.0); LYMPH # 0.2 K/mm3 (1.2-3.4); LYMPH % 2.1 % (20.0-51.0); MEAN CELL VOLUME 106 fl (80.0-100.0); MEAN CORPUSCULAR HEMOGLOBIN 35 pg (27-31); MEAN CORPUSCULAR HGB CONC 33 g/dl (33.0-37.0); MEAN PLATELET VOLUME 10.7 fl (7.4-10.4); MONO # 0.7 K/mm3 (0.1-0.6); MONO % 7.3 % (1.7-9.3); PLATELET COUNT 74 K/mm3 (130-400); RED BLOOD COUNT 3.99 M/mm3 (4.20-5.60); REDCELL DISTRIBUTION WIDTH-CV 14.1 % (11.5-14.5)
[2023-12-02 08:09] LABS: CALCIUM 8.6 mg/dL (8.4-10.2); CREATININE, serum 0.81 mg/dL (0.72-1.25); INR 3.3 (0.8-3.0); POTASSIUM 4.9 mmol/L (3.5-4.5); PROTHROMBIN TIME 34.3 SECONDS (9.7-12.8)
--- NOTE | 2023-12-02 08:10 | NUR ---
PT RESTING IN BED UPON ENTERING. ASSESSEMENT DONE, MEDS CRUSHED AND GIVEN PER ORDER IN APPLESAUCE. PT REMINDED TO TUCK HIS CHIN AND TURN HIS HEAD TO THE LEFT BEFORE SWALLOWING, NO DIFFICULTY OR SWALLOWING NOTED. PT ON 1L NASAL CANNULA AND DENIES PAIN OR SHORTNESS OF BREATH AT THIS TIME. PT REPORTS OVERALL WEAKNESS. INT TO RIGHT FOREARM FLUSHES WELL WITHOUT COMPLICATIONS. TRIPLE LUMEN CENTRAL LINE, BLUE AND BROWN PORT FLUSH WELL WITH BLOOD RETURN BUT WHITE PORT FLUSHES WELL WITH NO BLOOD RETURN. PT SET UP WITH BREAKFAST AND DENIES NEEDS AT THIS TIME. BED IN LOWEST POSITION, CALL LIGHT IN REACH
--- NOTE | 2023-12-02 09:33 | NUR ---
OCCUPATIONAL THERAPY NOTIFIED THIS NURSE THAT PTS SPO2 DROPPED INTO THE 80S DURING THERAPY. PT OXYGEN BUMPED UP TO 1.5L AND SPO2 96%. PT SITTING IN CHAIR TALKING TO ON PHONE AND DENIES NEEDS AT THIS TIME
--- NOTE | 2023-12-02 14:02 | NUR ---
Warfarin Follow-up Pharmacy Note Current regimen: Warfarin 4 mg po qHS LABS: INR 3.3 Changes in therapy: Will decrease Warfarin to 2 mg po qHS starting tonight. Pharmacy will continue to closely monitor daily INR levels.
--- NOTE | 2023-12-02 16:08 | NUR ---
PT AMBUALTED FROM CHAIR TO BATHROOM 1 ASSIST WITH WALKER AND GAIT BELT, GAIT STEADY. PT HAD A SMALL HARD BOWEL MOVEMENT. PT NOTIFIED THAT STOOL SOFTENERS WERE ORDERED PER REQUEST AND PT NOW WANTS TO WAIT UNTIL TOMORROW TO SEE IF HE CAN HAVE A BOWEL MOVEMENT ON HIS OWN AGAIN. WAFFLE SEAT CUSHION PLACED IN CHAIR AND PT AMBULATED BACK TO CHAIR. PT AND DENIES NEEDS AT THIS TIME. PT GIVEN VANILLA ICE CREAM PER REQUEST. CHAIR ALARM ON AND CALL LIGHT IN REACH
--- NOTE | 2023-12-02 17:49 | NUR ---
workers' compensation mediator was notified [facility] is able to accept patient and could do the IV antibiotics there. Patient may be ready to discharge to their facility tomorrow. SW notified patient's . Patient's asked about inpatient rehab at the [facility]. CATHIE will follow up with [facility] tomorrow as they have left for the day. Discharge plan: [facility]
--- NOTE | 2023-12-02 18:31 | NUR ---
PT TRANSFERRED BACK TO BED STANDY. PT ON 2L NASAL CANNULA AND DENIES NEEDS AT THIS TIME. BED IN LOWEST POSITION, CALL LIGHT IN REACH, BED ALARM ON.
--- NOTE | 2023-12-02 18:50 | NUR ---
REPORT GIVEN TO DELIO GUERIN
--- NOTE | 2023-12-02 18:58 | NUR ---
PATIENT RESTING WITH EYES CLOSED IN THE APPEARANCE OF SLEEP WITH NO ACUTE DISTRESS NOTED. PATIENT ON 2 LITERS OF OXYGEN VIA NC. PATIENT EASILY AROUSED. TRIPLE LUMEN RIGHT IJ INTACT. ASSESSMENT COMPLETED. PATIENT TOELRATED WELL. PATIENT DENIES ANY NEEDS AT THIS TIME. BED IN LOW POSITION WITH WHEELS LOCKED WITH RAILS UP X3 AND CALL LIGHT WITHIN REACH. BED ALARM ON.
--- NOTE | 2023-12-02 21:45 | NUR ---
PATIENT RESTING WITH EYES CLOSED WITH ADUIBLE SNORING WITH NO ACUTE DISTRESS NOTED. PATIENT ON 2 LITERS OF OXYGEN VIA NC. PATIENT EASILY AROUSED. MEDICATION ADMINISTRATION COMPLETED AT THIS TIME. PATIENT TOLERATED WELL. PATIENT DENIES ANY NEEDS AT THIS TIME. BED IN LOW POSITION WITH WHEELS LOCKED WITH RAILS UP X3 AND CALL LIGHT WITHIN REACH. BED ALARM ON.
[2023-12-03] VITALS (13 sets, daily range): BP systolic 105–136; BP diastolic 64–77; PULSE 94–113; TEMP 97.1–97.8
[2023-12-03 07:14] LABS: INR 3.6 (0.8-3.0); PROTHROMBIN TIME 38.2 SECONDS (9.7-12.8)
[2023-12-03 07:17] LABS: BASO % 0.1 % (0.0-2.0); GRAN # 8.3 K/mm3 (1.4-6.5); GRAN % 88.4 % (42.2-75.2); HEMATOCRIT 43.6 % (42.0-52.0); HEMOGLOBIN 14.4 g/dl (13.5-18.0); LYMPH # 0.3 K/mm3 (1.2-3.4); LYMPH % 3.1 % (20.0-51.0); MEAN CELL VOLUME 104 fl (80.0-100.0); MEAN CORPUSCULAR HEMOGLOBIN 34 pg (27-31); MEAN CORPUSCULAR HGB CONC 33 g/dl (33.0-37.0); MEAN PLATELET VOLUME 10.2 fl (7.4-10.4); MONO # 0.8 K/mm3 (0.1-0.6); MONO % 8.1 % (1.7-9.3); PLATELET COUNT 75 K/mm3 (130-400); RED BLOOD COUNT 4.21 M/mm3 (4.20-5.60); REDCELL DISTRIBUTION WIDTH-CV 13.7 % (11.5-14.5)
[2023-12-03 07:29] LABS: CALCIUM 8.7 mg/dL (8.4-10.2); CREATININE, serum 0.74 mg/dL (0.72-1.25); POTASSIUM 4.8 mmol/L (3.5-4.5)
[2023-12-03] MEDS ORDERED: COREG 3.123.125 MG/T PO (08:55)
[2023-12-03] MEDS ORDERED: ENTRESTO 24 MG1 EACH PO (08:55)
[2023-12-03] MEDS ORDERED: DECADRON 4MG TAB4 MG PO (09:07)
--- NOTE | 2023-12-03 16:31 | NUR ---
SW was notified patient is able to transfer to [facility] tomorrow. Patient and patient's are aware and excited. SW notified service unit operator, patient's nurse and doctor. SW notified [facility] as well. Discharge plan: [facility]
--- NOTE | 2023-12-03 22:08 | NUR ---
Patient assessed around 2129. Alert and oriented x 4. Denies having pain and discomfort. RT had placed patient on room air. Denies SOB and dyspnea. LS CTA. Assisted to bathroom, and denied SOB and dyspnea with exertion. HRR. Telemetry in place. BSAx4. Abdome soft and non-tender. No edema. Voices no questions, needs, or concerns at this time. In bed with call light within reach. High fall risk precautions in place. Bed alarm on.
[2023-12-04 03:39] VITALS: BP 122/72; PULSE 104; TEMP 97.5
[2023-12-04 04:14] VITALS: BP_SYST 122
--- NOTE | 2023-12-04 06:06 | NUR ---
Received IV ABX per orders. Has denied having pain and discomfort this shift. Continues on room air. Voices no questions, needs, or concerns at this time. In bed with call light within reach. Bed alarm on.
[2023-12-04 07:00] LABS: INR 2.9 (0.8-3.0); PROTHROMBIN TIME 30.8 SECONDS (9.7-12.8)
[2023-12-04 07:01] LABS: BASO % 0.2 % (0.0-2.0); EOS % 0.1 % (0.0-4.0); GRAN # 8.6 K/mm3 (1.4-6.5); GRAN % 87.1 % (42.2-75.2); HEMATOCRIT 45.4 % (42.0-52.0); HEMOGLOBIN 15.5 g/dl (13.5-18.0); LYMPH # 0.3 K/mm3 (1.2-3.4); LYMPH % 3.4 % (20.0-51.0); MEAN CELL VOLUME 103 fl (80.0-100.0); MEAN CORPUSCULAR HEMOGLOBIN 35 pg (27-31); MEAN CORPUSCULAR HGB CONC 34 g/dl (33.0-37.0); MEAN PLATELET VOLUME 10.3 fl (7.4-10.4); MONO # 0.8 K/mm3 (0.1-0.6); MONO % 8.5 % (1.7-9.3); PLATELET COUNT 89 K/mm3 (130-400); RED BLOOD COUNT 4.43 M/mm3 (4.20-5.60); REDCELL DISTRIBUTION WIDTH-CV 13.7 % (11.5-14.5)
[2023-12-04 07:08] LABS: CALCIUM 8.7 mg/dL (8.4-10.2); CREATININE, serum 0.75 mg/dL (0.72-1.25); POTASSIUM 4.8 mmol/L (3.5-4.5)
[2023-12-04 07:30] VITALS: BP 144/84; PULSE 106; TEMP 97.3
[2023-12-04 09:00] VITALS: BP_SYST 144
[2023-12-04] MEDS ORDERED: COUMADIN 2MG2 MG/TAB PO (09:11)
--- NOTE | 2023-12-04 09:55 | NUR ---
CATHIE Student went over and completed Medicare IM form with patient and at [facility]. Copy of form made and provided to patient. Original copy put into patient's chart. Discharge Plan: [facility]
--- NOTE | 2023-12-04 11:10 | NUR ---
PATIENT DISCHARGE TO [facility]. PATIENT TRASFERED TO [facility] BY WHEELCHAIR BY PATIENTS NURSE ACCOMPANIED BY PATIENT ISRAEL. ALL BELINGINGS WHERE TAKEN WITH PATIENT.
== END 2023-12-04 11:10 | disposition swing bed (61) | DRG 871 ==
LOC: COL.ER 15:04 → ICU 16:35 → MEDICAL 11-29 16:45
PROVIDERS: Emergency Medicine; Hospitalist; Internal Medicine; Internal Medicine Sleep Medicine; Physician Assistant; ADMIT Internal Medicine
PROC: 05HM33Z Insertion of Infusion Device into Right Internal Jugular Vein, Percutaneous Approach (ICD-10-PCS; principal; 2023-11-27)
DX: A41.9 Sepsis, unspecified organism (principal); J69.0 Pneumonitis due to inhalation of food and vomit; J96.01 Acute respiratory failure with hypoxia; R65.21 Severe sepsis with septic shock; I50.9 Heart failure, unspecified; I25.10 Atherosclerotic heart disease of native coronary artery without angina pectoris; Z95.1 Presence of aortocoronary bypass graft; I48.91 Unspecified atrial fibrillation; E87.5 Hyperkalemia; E78.5 Hyperlipidemia, unspecified
CPT/HCPCS: A4314; A9270; C1751; J0282; J0456; J0692; J0696; J0737; J1100; J1160; J1815; J1940; J2930; J7050; J7060

== ENCOUNTER 2023-12-04 08:54 | Inpatient (IN) | payer MEDICARE, BC ==
[~2023-12-04] VITALS: Ht 180.3 cm; Wt 57.1 kg
[~2023-12-04 08:54] MED LIST changes: +BROVANA15 MCG/2 M IH; +COREG 3.123.125 MG/T PO; +COUMADIN 6MG6 MG/TAB PO; +DECADRON 4MG TAB4 MG PO; +ENTRESTO 24 MG1 EACH PO; +ENTRESTO 49 MG1 EACH PO; +JARDIANCE10 PO; +NATURAL IRON65 MG PO; +TRUSOPT OCUMETE10 ML OD; +VITAMIN C500 MG PO; +VITAMIN D31000 I1 PO
[2023-12-04] MEDS ORDERED: COUMADIN 2MG2 MG/TAB PO (09:11)
[2023-12-04 11:23] VITALS: BP 120/68; PULSE 104; TEMP 97.5
[2023-12-04] MEDS ORDERED: Naloxone 0.4 MG/ML VIAL IV PRN (12:30)
[2023-12-04] MEDS ORDERED: Polyethylene Glycol 3350 17 GM PDS PO PRN (12:30)
[2023-12-04] MEDS ORDERED: Sennosides/Docusate 8.6-50 MG TAB PO PRN (12:30)
[2023-12-04] MEDS ORDERED: Acetaminophen 325 MG TAB PO PRN (12:30)
[2023-12-04] MEDS ORDERED: Docusate Sodium 100 MG CAP PO PRN (12:30)
[2023-12-04 13:00] VITALS: BP_SYST 120
[2023-12-04] MEDS ORDERED: Brimonidine 0.2% Ophth Soln 5 ML BOTTLE OP SCH (14:00)
--- NOTE | 2023-12-04 15:36 | NUR ---
Has lack of transportation kept you from medical appts, meetings, work, or from getting things needed for daily living? no How often do you feel lonely or isolated from those around you? sometimes Over the past 5 days, how much of the time has pain made it hard for you to sleep? frequently Over the past 5 days, how often have you limited your participation in therapy due to pain? rarely/not at all Over the past 5 days, how often have you limited your day-to-day activities because of pain? rarely/not at all Have you had 2 or more falls in the past year or any fall with an injury? no Did you have major surgery during the 100 days prior to admission? no
[2023-12-04 17:00] VITALS: BP_SYST 125
[2023-12-04] MEDS ORDERED: Carvedilol 3.125 MG TAB PO SCH (17:00)
[2023-12-04 17:44] VITALS: BP 125/74; PULSE 109; TEMP 97.5
[2023-12-04] MEDS ORDERED: Formoterol Neb Soln 20 MCG/2 ML UD IH SCH (19:00)
[2023-12-04] MEDS ORDERED: Budesonide Neb Susp 0.25 MG/2 ML AMP IH SCH (19:00)
[2023-12-04] MEDS ORDERED: Arformoterol 15 MCG **** subs to Formoterol 20 MCG IH SCH (19:00)
[2023-12-04 21:00] VITALS: BP_SYST 125
[2023-12-04] MEDS ORDERED: Travoprost Ophth Soln **** subs to Latanoprost Ophth Soln OP SCH (21:00)
[2023-12-04] MEDS ORDERED: Timolol 0.5% Ophth Soln 5 ML BOTTLE OP SCH (21:00)
[2023-12-04] MEDS ORDERED: Latanoprost 0.005% Ophth Soln 2.5 ML BOTTLE OP SCH (21:00)
[2023-12-04] MEDS ORDERED: Mirtazapine 15 MG TAB PO SCH (21:00)
--- NOTE | 2023-12-04 22:16 | NUR ---
NURSING SHIFT ASSESSMENT COMPLETED. THE PATIENT WAS QUIETLY RESTING UPON ENTERING THE PT ROOM. THE PATIENT AROUSED EASILY. THE PATIENT DENIED PAIN OR DISCOMFORT. EVENING MEDICATIONS AND THE PLAN OF CARE WERE REVIEWED. THE PATIENT DENIED QUESTIONS OR CONCERNS. CALL LIGHT AND PERSONAL BELONGINGS WITHIN REACH. THE BED WAS IN THE LOW POSITION. BED ALARM ON.
[2023-12-05] VITALS (8 sets, daily range): BP systolic 114–126; BP diastolic 65–79; PULSE 82–104; TEMP 97.6–98.5
--- NOTE | 2023-12-05 03:49 | NUR ---
BED ALARM SOUNDING. PT SITTING ON SIDE OF BED. SPEECH DIFFICULTY TO UNDERSTAND. PT ORIENTED BUT FORGETFUL. ASSISTED TO BR WITH WALKER. VERY WEAK. PT MISSED TOILET. URINE CLEANED UP OFF THE FLOOR. CLOTHING CHANGED. PT NEEDED CUEING TO TAKE PANTS DOWN. MAX ASSIST REMOVING LOWER BODY CLOTHING AND SLIPPERS AND DONNING NEW SLIPPERS. BACK TO BED. PT ABLE TO LIFT LEGS INTO BED PER SELF. CALL LIGHT IN REACH. BED ALARM SET.
[2023-12-05] MEDS ORDERED: Atorvastatin 20 MG TAB PO SCH (09:00)
[2023-12-05] MEDS ORDERED: Empagliflozin 10 MG TAB PO SCH (09:00)
[2023-12-05] MEDS ORDERED: Cholecalciferol (Vit D3) 1000 Units TAB PO SCH (09:00)
[2023-12-05] MEDS ORDERED: Ascorbic Acid 500 MG TAB PO SCH (09:00)
[2023-12-05] MEDS ORDERED: Ferrous Sulfate 325 MG TAB PO SCH (09:00)
[2023-12-05] MEDS ORDERED: dexAMETHasone 4 MG TAB PO SCH (09:00)
--- NOTE | 2023-12-05 09:57 | NUR ---
PT RESTING IN BED. UP TO RECLINER FOR BREAKFAST. ALL MEDS CRUSHED IN APPLE SAUCE. PT EATING [facility] SOFT DIET BITE SIZED. TOELERATING WELL. AT BEDSIDE AT THIS TIME.
--- NOTE | 2023-12-05 10:17 | NUR ---
Staff spoke with patient regarding referral from PCP to start Cardiac Rehab. Referral was recieved just prior to hospitalization. Staff encouraged completion of inpatient rehab and possible home PT/outpatient prior to initiation of oupatient cardiac rehab. Patient and patient's verbalized understanding. Staff will f/u after discharge.
[2023-12-05 10:43] LABS: INR 2.2 (0.8-3.0); PROTHROMBIN TIME 23.6 SECONDS (9.7-12.8)
--- NOTE | 2023-12-05 11:05 | NUR ---
Pt ambulating off unit w/ OT
--- NOTE | 2023-12-05 12:07 | NUR ---
Warfarin Follow-up Pharmacy Note Current regimen: Warfarin 2 mg po qHS LABS: INR 2.2 <- 2.9 Changes in therapy: Will increase Warfarin to 3 mg po qHS starting tonight as anticipate INR will continue to decrease with lower dose. Pharmacy will continue to closely monitor daily INR levels.
--- NOTE | 2023-12-05 16:19 | NUR ---
Marketing Operations Manager met with patient to complete initial intake. Patient lives in [place] with his , Rosio (ph#[phone]) and sees Dr. Sweeney for primary care. Patient has a walker and cane at home. Patient stated he is supposed to use a CPAP, but doesn't. Patient is unable to drive and has his take him to medical appointments. Patient has DPOA-HC in chart that designates Nikki. SW explained her role and advised she would check in next week.
[2023-12-06 01:00] VITALS: BP_SYST 114
[2023-12-06 05:00] VITALS: BP_SYST 114
[2023-12-06 05:18] VITALS: BP 138/69; PULSE 127; TEMP 98.4
[2023-12-06 07:21] LABS: INR 2.1 (0.8-3.0); PROTHROMBIN TIME 21.9 SECONDS (9.7-12.8)
[2023-12-06 09:00] VITALS: BP_SYST 138
[2023-12-06 17:13] VITALS: BP 112/72; PULSE 100; TEMP 97.4
--- NOTE | 2023-12-06 20:00 | NUR ---
Patient assessed at this time, see shift assessment, denies pain or discomfort, crushed pills with apple sauce and took them fine, maintained on aspiration precaution, noted redness on bottom, denies further needs, call light and personal items within reach, will continue to monitor.
[2023-12-07 05:55] VITALS: BP 124/75; PULSE 98; TEMP 98
[2023-12-07 06:12] VITALS: BP_SYST 124
--- NOTE | 2023-12-07 10:00 | NUR ---
SHIFT ASSESSMENT COMPLETE. VSS. PATIENT UP TO CHAIR EATING BREAKFAST. ALL MORNING MEDS GIVEN PER ORDERS. PATIENT HAS NO REQUEST OR COMPLAINTS THIS AM. FALL PRECAUTIONS IN PLACE, CALL LIGHT IN REACH.
[2023-12-07 10:17] LABS: INR 2.4 (0.8-3.0); PROTHROMBIN TIME 25.4 SECONDS (9.7-12.8)
[2023-12-07 17:00] VITALS: BP_SYST 110
[2023-12-07 17:13] VITALS: BP 110/56; PULSE 92; TEMP 97.2
--- NOTE | 2023-12-07 19:24 | NUR ---
RECEIVED CHANGE OF SHIFT REPORT FROM DAY SHIFT NURSE.
--- NOTE | 2023-12-08 02:43 | NUR ---
PATIENT RESTING IN BED WITH EYES CLOSED, BREATHING EVEN AND NONLABORED. EXIT ALARM ON, CALL LIGHT IN REACH.
[2023-12-08 05:16] VITALS: BP 136/78; PULSE 98; TEMP 98.6
--- NOTE | 2023-12-08 07:04 | NUR ---
Change of shift report given to day shift nurseNina.
[2023-12-08 07:15] VITALS: BP_SYST 136
--- NOTE | 2023-12-08 07:15 | NUR ---
Shift report received from night RN. No events reported overnight. Pt sleeping supine in bed w/ even & unlabored resps. Call light in reach. Fall precautions in place.
--- NOTE | 2023-12-08 08:03 | NUR ---
Pt supervised as he stood from bed to ambulate to the bathroom w/ FWW. Pt voided & ambulated to recliner to eat breakfast. Pain/discomfort denied. Other needs denied. Call light in reach. Fall precautions in place.
--- NOTE | 2023-12-08 11:00 | NUR ---
Pt finishing up a shower w/ OT. Pt noted to have abraded skin to mid/lower spine (over bony prominence). Skin appears cracked. Since over bony prominence mepilex x2 placed for pressure ulcer prophylaxis. Waffle air cushion placed in recliner chair back for additional pressure relief.
[2023-12-08 11:39] LABS: INR 2.5 (0.8-3.0); PROTHROMBIN TIME 26.9 SECONDS (9.7-12.8)
--- NOTE | 2023-12-08 13:43 | NUR ---
Pt ambulating off unit w/ PT.
--- NOTE | 2023-12-08 14:04 | NUR ---
Admission QIM scores were reviewed by the team. Code of 4 chosen for oral hygiene was determined by team discussion to be the most usual performance before interventions for this patient during the assessment period. Code of 3 chosen for toilet transfers was determined by team discussion to be the most usual performance for this patient during the discharge assessment period. Code of 3 chosen for upper body dressing was determined by team discussion to be the most usual performance before interventions for this patient during the assessment period. Code of 3 chosen for putting on/taking off footwear was determined by team discussion to be the most usual performance before interventions for this patient during the assessment period. Code of 4 chosen for rolling left to right was determined by team discussion to be the most usual performance before interventions for this patient during the assessment period. Code of 6 chosen for sit to lying was determined by team discussion to be the most usual performance before interventions for this patient during the assessment period. Code of 6 chosen for lying to sitting side of bed was determined by team discussion to be the most usual performance before interventions for this patient during the assessment period. Code of 4 chosen for sit to stand was determined by team discussion to be the most usual performance for this patient during the discharge assessment period. Code of 3 chosen for chair/bed to chair transfer was determined by team discussion to be the most usual performance before interventions for this patient during the assessment period. Code of 4 for car transfer was determined by team discussion to be the most usual performance before interventions for this patient during the assessment period. Code of 4 chosen for walking 10 feet was determined by team discussion to be the most usual performance for this patient during the discharge assessment period. Code of 3 chosen for walking 50 feet w/ 2 turns was determined by team discussion to be the most usual performance before interventions for this patient during the discharge assessment period. Code of 3 chosen for walking 150 feet was determined by team discussion to be the most usual performance before interventions for this patient during the assessment period.--PD Aaron
--- NOTE | 2023-12-08 15:59 | NUR ---
Repairer Shoe Sticks met with patient to check in from the weekend. Patient had a birthday yesterday. Patient advised he is working hard, but remarked he has lost a significant amount of weight. SW discussed a family meeting and patient advised his will be happy to participate. CATHIE contacted Rosio and scheduled a family meeting for Friday at 1030.
--- NOTE | 2023-12-08 17:27 | NUR ---
Pt sleeping supine in bed. Resps even & unlabored. Call light in reach. Fall precautions in place.
[2023-12-08 18:00] VITALS: BP 103/72; PULSE 103; TEMP 97.2
[2023-12-08 18:27] VITALS: BP_SYST 103
--- NOTE | 2023-12-08 19:06 | NUR ---
RECEIVED CHANGE OF SHIFT REPORT FROM DAY SHIFT NURSE.
--- NOTE | 2023-12-08 23:47 | NUR ---
PATIENT RESTING IN BED, EYES CLOSED, BREATHING EVEN AND NONLABORED, ON ROOM AIR. EXIT ALARM ON, CALL LIGHT IN REACH.
[2023-12-09 04:53] VITALS: BP 139/76; PULSE 89; TEMP 98.2
[2023-12-09 06:30] VITALS: BP_SYST 139
--- NOTE | 2023-12-09 07:19 | NUR ---
CHANGE OF SHIFT REPORT GIVEN TO DAY SHIFT NURSEMK.
[2023-12-09 09:52] LABS: INR 2.9 (0.8-3.0); PROTHROMBIN TIME 30.7 SECONDS (9.7-12.8)
--- NOTE | 2023-12-09 09:53 | NUR ---
PT OUT TO [facility] WITH THERAPY. TAKING SOFT PO WELL MEDS CRUSHED IN APPLESAUCE. PT DENIES NEEDS. AMBULATING WELL WITH SBA X1.
[2023-12-09 17:22] VITALS: BP 111/73; PULSE 103; TEMP 97.2
[2023-12-09 18:00] VITALS: BP_SYST 111
--- NOTE | 2023-12-09 19:38 | NUR ---
RECEIVED CHANGE OF SHIFT REPORT FROM DAY SHIFT NURSE. PATIENT RESTING IN BED AT THIS TIME, EXIT ALARM ON, CALL LIGHT IN REACH.
[2023-12-10 05:23] VITALS: BP 123/80; PULSE 102; TEMP 98
[2023-12-10 06:03] VITALS: BP_SYST 123
--- NOTE | 2023-12-10 07:27 | NUR ---
RECIEVED REPORT FROM DIESEL TECHNICIAN MECHANIC DARON KEBEDE
--- NOTE | 2023-12-10 07:37 | NUR ---
CHANGE OF SHIFT REPORT GIVEN TO DAY SHIFT NURSEMATTI.
[2023-12-10 08:00] LABS: BASO % 0.1 % (0.0-2.0); EOS % 0.1 % (0.0-4.0); GRAN # 13.6 K/mm3 (1.4-6.5); GRAN % 89.3 % (42.2-75.2); HEMATOCRIT 49.2 % (42.0-52.0); HEMOGLOBIN 16.5 g/dl (13.5-18.0); LYMPH # 0.8 K/mm3 (1.2-3.4); LYMPH % 5.2 % (20.0-51.0); MEAN CELL VOLUME 103 fl (80.0-100.0); MEAN CORPUSCULAR HEMOGLOBIN 35 pg (27-31); MEAN CORPUSCULAR HGB CONC 34 g/dl (33.0-37.0); MEAN PLATELET VOLUME 10.5 fl (7.4-10.4); MONO # 0.7 K/mm3 (0.1-0.6); MONO % 4.6 % (1.7-9.3); PLATELET COUNT 103 K/mm3 (130-400); RED BLOOD COUNT 4.77 M/mm3 (4.20-5.60)
[2023-12-10 08:11] LABS: CREATININE, serum 0.8 mg/dL (0.72-1.25); POTASSIUM 4.7 mmol/L (3.5-4.5)
[2023-12-10 09:56] LABS: INR 2.9 (0.8-3.0); PROTHROMBIN TIME 30.8 SECONDS (9.7-12.8)
--- NOTE | 2023-12-10 15:42 | NUR ---
Still Operator participated in patient's family meeting which included patient's and daughter at bedside. Yuridia [facility] Director opened the meeting by explaining it's purpose followed by report from IPR Physician. Therapy provided report on patient's progress and recommendations. Patient's dietary concerns were discussed and it was reported that patient has done better with a pureed diet. Patient's Rosio remarked she just got a new mixer that allows her to puree food at home. Discharge date is set for Friday and patient is agreeable to this. CATHIE advised HH services are recommended and Rosio advised they have used [facility] in the past. CATHIE followed up with patient and provided copy of team conference notes. CATHIE also provided Medicare.gov list of HH agencies to select from.
[2023-12-10 17:02] VITALS: BP 96/65; PULSE 103; TEMP 98
[2023-12-10 18:04] VITALS: BP_SYST 96
[2023-12-10 18:08] VITALS: BP 99/58; PULSE 97
--- NOTE | 2023-12-10 20:37 | NUR ---
PATIENT DOES NOT APPEAR TO BE IN DISTRESS. NO PAIN OR DISCOMFORT PER PATIENT. PATIENT TOOK PILLS CRUSHED WITH HIS ENSURE. BED IN LOW POSITION AND CALL LIGHT WITHIN REACH. PATIENT HAS NO QUESTIONS OR CONCERNS AT THIS TIME.
[2023-12-11 05:08] VITALS: BP 144/70; PULSE 94; TEMP 98.1
[2023-12-11 06:00] VITALS: BP_SYST 144
--- NOTE | 2023-12-11 07:04 | NUR ---
Shift report received from night RN. No events reported overnight. Pt awake & sitting up in bed. Denies pain/discomfort. Denies chest pain, TOUSSAINT, other needs. Call light in reach. Bed alarm on.
[2023-12-11 08:17] LABS: INR 2.7 (0.8-3.0)
--- NOTE | 2023-12-11 08:33 | NUR ---
Pt off unit w/ PT
--- NOTE | 2023-12-11 10:58 | NUR ---
Pt off unit for Group Therapy.
--- NOTE | 2023-12-11 14:06 | NUR ---
Telemetry Registered Nurse contacted patient's , Rosio by phone to follow up on Home Health. Unfortunately, patient's sister was in a serious car accident and is at [facility] and Rosio advised she was on her way to the hospital to visit her. Rosio advised they haven't made a final decision on HH but will review the list tomorrow. SW checked in with patient and offered support. Patient stated he isn't sure if his sister will make it through but that "God's got her".
--- NOTE | 2023-12-11 15:47 | NUR ---
Pt sleeping supine in bed w/ even & unlabored resps. Call light in reach. Bed alarm on.
[2023-12-11 16:35] VITALS: BP 99/56; PULSE 101; TEMP 98
--- NOTE | 2023-12-11 18:06 | NUR ---
Pt sitting up on EOB eating dinner independently. Pain/discomfort denied. Other needs denied. Call light in reach. Bed alarm on.
[2023-12-11 18:27] VITALS: BP_SYST 99
[2023-12-11 18:30] VITALS: BP 113/74
[2023-12-12 06:02] VITALS: BP 122/65; PULSE 110; TEMP 98.5
[2023-12-12 07:17] VITALS: BP_SYST 122
--- NOTE | 2023-12-12 07:18 | NUR ---
Shift report received from night RN. No events reported overnight. Pt sleeping supine in bed w/ even & unlabored resps. Call light in reach. Bed alarm on.
[2023-12-12 08:16] LABS: INR 2.2 (0.8-3.0); PROTHROMBIN TIME 23.8 SECONDS (9.7-12.8)
--- NOTE | 2023-12-12 08:18 | NUR ---
Pt ambulating off unit w/ PT
--- NOTE | 2023-12-12 12:30 | NUR ---
Pt sitting up in recliner eating lunch independently. Denies pain/discomfort. Denies other needs. Call light in reach. Chair alarm on.
[2023-12-12 17:33] VITALS: BP 102/64; PULSE 98; TEMP 97.5
--- NOTE | 2023-12-12 18:08 | NUR ---
Pt sitting up in recliner w/ BLE elevated on footrest. Pt talking to his on the phone. Pt denies pain/discomfort. Denies any needs. Ate 100% of dinner independently. Call light in reach. Chair alarm on.
[2023-12-12 19:00] VITALS: BP_SYST 102
--- NOTE | 2023-12-12 20:37 | NUR ---
Patient assessed at this time, see shift assessment, denies pain or discomfort, still with RIJ infusing well, denies further needs, call light and personal items within reach, will continue to monitor.
--- NOTE | 2023-12-13 05:28 | NUR ---
Patient had an uneventful night, denies further need at this time.
[2023-12-13 06:02] VITALS: BP 126/70; PULSE 87; TEMP 97.4
[2023-12-13 06:57] LABS: PROTHROMBIN TIME 21.5 SECONDS (9.7-12.8)
--- NOTE | 2023-12-13 07:28 | NUR ---
RECIEVED REPORT FROM DELIO CRISOSTOMO.
[2023-12-13 07:29] VITALS: BP_SYST 126
--- NOTE | 2023-12-13 10:46 | NUR ---
PT ALERT AND ORIENTED. VSS, DENIES PAIN AT THIS TIME. SHIFT ASSESSMENT COMPLETE, MEDICATED PER EMAR. RT TRIPLE IJ, ALL FLUSHING WELL, ONLY CAN GET RETURN ON BROWN LUMEN. IS TOLERATING PUREE DIET WELL, MEDS CRUSHED WITH APPLESAUCE. DENIES NEED FOR ANYTHING FURTHER AT THIS TIME. CALL LIGHT WITHIN REACH, CHAIR ALARM SET.
[2023-12-13 17:24] VITALS: BP 107/63; PULSE 57; TEMP 97
[2023-12-13 19:00] VITALS: BP_SYST 107
[2023-12-14 05:37] VITALS: BP 121/79; PULSE 100; TEMP 97.1
[2023-12-14 07:20] VITALS: BP_SYST 121
[2023-12-14 08:00] LABS: INR 1.7 (0.8-3.0); PROTHROMBIN TIME 18.2 SECONDS (9.7-12.8)
--- NOTE | 2023-12-14 08:30 | NUR ---
Patient is resting in chair, alert and oriented x 4, denies any pain or discomfort. States he takes his pills crushed in applesause and some milk, provided. Assessment completed, no further needs at this time. Call light within reach.
[2023-12-14 17:07] VITALS: BP 94/56; PULSE 87; TEMP 97.5
[2023-12-14 19:09] VITALS: BP_SYST 94
[2023-12-15 05:11] VITALS: BP 120/75; PULSE 90; TEMP 97.7
[2023-12-15 06:46] VITALS: BP_SYST 120
--- NOTE | 2023-12-15 06:47 | NUR ---
Shift report received from night RN. No events reported overnight. Pt sleeping supine in bed w/ even & unlabored resps. Call light reach. Fall precautions in place.
--- NOTE | 2023-12-15 07:29 | NUR ---
Pt sitting up on EOB to eat breakfast indpendently. Pt reports sleeping well overnight. Denies pain/discomfort. Other needs denied. Rt IJ flushing well x 3 lumen, brown & white lumen w/ noted blood return. Pt has his call light in reach. Fall precautions in place.
[2023-12-15 07:43] LABS: INR 1.7 (0.8-3.0); PROTHROMBIN TIME 18.1 SECONDS (9.7-12.8)
--- NOTE | 2023-12-15 10:22 | NUR ---
CENTRAL LINE DRESSING CHANGE COMPLETED USING STERILE TECHNIQUE. SUTURES INTACT, NO REDNESS AROUND SITE.
--- NOTE | 2023-12-15 10:25 | NUR ---
Agree with note above re: central line dressing change.
[2023-12-15 10:45] VITALS: BP 91/55
--- NOTE | 2023-12-15 14:22 | NUR ---
Pt just completed a shower w/ OT. Pt noted to have abraded skin to lower spine last week. Skin healing. No redness noted. Mepilex replaced to continue w/ pressure ulcer prevention.
--- NOTE | 2023-12-15 14:23 | NUR ---
Pt ambulating off unit w/ OT.
--- NOTE | 2023-12-15 16:01 | NUR ---
Pt sleeping supine in bed. Resps even & unlabored. Call light in reach. Bed alarm on.
--- NOTE | 2023-12-15 16:03 | NUR ---
Business Management Manager met with patient to check in following the weekend. Patient advised things are going well and that he and his looked over the Medicare.gov list of agencies. Patient would like referral sent to [facility]. CATHIE contacted Francisco at [facility] and CATHIE Pichardo faxed referral.
[2023-12-15 17:09] VITALS: BP 114/69; PULSE 97; TEMP 96.8
[2023-12-15 19:00] VITALS: BP_SYST 114
--- NOTE | 2023-12-15 20:00 | NUR ---
STABLE ON ROUNDS. RESPIRATIONS EVEN AND UNLABORED. NO SIGN OF DISTRESS AT THIS TIME.
[2023-12-16 05:26] VITALS: BP 123/75; PULSE 95; TEMP 98.7
--- NOTE | 2023-12-16 06:55 | NUR ---
appears to be dozing, arouses easily, bedside shift report received from DELIO Leyva
[2023-12-16 07:01] VITALS: BP_SYST 123
--- NOTE | 2023-12-16 08:50 | NUR ---
awake and resting in bed, had breakfast and tolerated well, full assessment completed, see interventions for further info,
--- NOTE | 2023-12-16 09:15 | NUR ---
physical therapy in to work with patient, ambulating out in brink
--- NOTE | 2023-12-16 09:48 | NUR ---
Dr Goldstein in to see patient, now at bedside, concerned about dried blood that is approx 4cm in size on sheet, sheet changed and will monitor
--- NOTE | 2023-12-16 09:56 | NUR ---
speech therapy in to work with patient
--- NOTE | 2023-12-16 11:23 | NUR ---
out of room with physical therapy
--- NOTE | 2023-12-16 11:46 | NUR ---
returned ambulatory from working with therapy, therapy assistance states O2 sat during exercises was between 90-95%
--- NOTE | 2023-12-16 12:58 | NUR ---
Will lack of transportation kept you from medical appts, meetings, work, or from getting things needed for daily living? no How often do you feel lonely or isolated from those around you? never Over the past 5 days, how much of the time has pain made it hard for you to sleep? no pain Over the past 5 days, how often have you limited your participation in therapy due to pain? no pain Over the past 5 days, how often have you limited your day-to-day activities because of pain? no pain
--- NOTE | 2023-12-16 13:22 | NUR ---
Assistant General Manager met with patient to present and review IM. Patient verbalized understanding and provided signature. SW placed form in chart and provided copy to patient. CATHIE also contacted Francisco at [facility] who confirmed she received referral and can accept patient.
--- NOTE | 2023-12-16 14:11 | NUR ---
occupational therapy in assisting him with taking a shower
--- NOTE | 2023-12-16 16:20 | NUR ---
appears to be sleeping, in bed with eyes closed, resp quiet and easy
[2023-12-16 18:00] VITALS: BP 124/80; PULSE 63; TEMP 98.1
--- NOTE | 2023-12-16 18:55 | NUR ---
bedside shift report given to DELIO Wilson
[2023-12-16 19:00] VITALS: BP_SYST 124
--- NOTE | 2023-12-16 20:40 | NUR ---
PT IN BED WATCHING TV. A&O. DENYING PAIN OR N/V. ASSESSMENT & HS MEDS COMPLETED. RT IJ PATENT W/ BLOOD RETURN. PT DENYING FURTHER NEEDS. CALL LIGHT IN REACH.
[2023-12-17] VITALS (7 sets, daily range): BP systolic 92–122; BP diastolic 58–72; PULSE 83–96; TEMP 97.1–97.9
--- NOTE | 2023-12-17 00:32 | NUR ---
PT RESTING IN BED WITH UNLABORED RESP. CALL LIGHT IN REACH
[2023-12-17 11:15] LABS: INR 1.4 (0.8-3.0); PROTHROMBIN TIME 15.1 SECONDS (9.7-12.8)
[2023-12-17] MEDS ORDERED: ENTRESTO 24 MG1 EACH PO (11:47)
[2023-12-17] MEDS ORDERED: COREG 3.123.125 MG/T PO (11:47)
[2023-12-17] MEDS ORDERED: COUMADIN 2MG2 MG/TAB PO (11:47)
[2023-12-17] MEDS ORDERED: Iohexol 300 - 100 ML VIAL IV ONE (13:12)
[2023-12-17] MEDS ORDERED: NS 100 ML IV SCH (13:29)
--- NOTE | 2023-12-17 15:06 | NUR ---
Border Patrol Agent was notified that patient's discharge was cancelled. SW contacted Francisco at [facility] to provide update.
--- NOTE | 2023-12-17 17:26 | NUR ---
PT RT IJ REMOVED AROUND 1140 AND PT DID FLAT TIME FOR 30 MINUTES. WHILE DOING FLAT TIME PT COMPLAINED TO DR. FINNEGAN OF HEADACHE AND TINGLING INTO RT SIDE OF JAW AND UNDER TONGUE. INTERACTIVE MARKETING STRATEGIST WENT IN TO BRING PT TYLENOL FOR HEADACHE AND DR. FINNEGAN CAME IN AT THE SAME TIME TO CHECK BACK IN ON PT. INTERACTIVE MARKETING STRATEGIST ASKED PT TO SIT UP ON THE EDGE OF THE BED TO TAKE APAP AND PT WAS UNABLE TO DO SO WITHOUT ASSISTANCE AND WAS UNABLE TO HOLD HIMSELF UP, THIS WAS NEW FROM THIS MORNING PT WAS MOSTLY INDEPENDENT WITH ACTIVITIES AND ONLY A STANDBY ASSIST FOR TRANSFERS. DR. FINNEGAN HAD TO ASSIST AND HOLD PT UPRIGHT FOR HIM TO TAKE APAP. DR. FINNEGAN AND INTERACTIVE MARKETING STRATEGIST ASSESSED PT AND NOTICED LT SIDED WEAKNESS W/ INABILITY TO MOVE UPPER AND LOWER EXTREMITIES. VITAL SIGNS AND GLUCOSE WERE CHECKED AND ALL NORMAL. DR. ACEVES WAS CONSULTED BY DR. FINNEGAN AND PT WENT FOR STAT CT. WHILE PT AT CT HE APPARENTLY REGAINED FUNCTION OF LT EXTREMITIES AND WAS BACK TO NORMAL MOVEMENT ONCE HE RETURNED. CHEST XRAY ORDERED WELL AT THE RECOMMENDATION OF DR. ROBERTS. PT HAS RECOVERED FROM EPISODE, BUT WILL CONTINUE TO MONITOR.
--- NOTE | 2023-12-17 20:00 | NUR ---
PT AWAKE ALERT AND ORIENTED. SPEECH VERY QUIET/ SL MUMBLING. SEE NEUROCHECK. PT TAKES HS PILLS CRUSHED IN APPLESAUCE. PRINCE WELL. SEE SKIN ASSESSMENT. OLD RT IJ SITE WITH KAYLYNN ARIAS. PT DENIES PAIN. READY FOR BED. NO NEEDS AT THIS TIME.
[2023-12-17] MEDS ORDERED: Warfarin 4 MG TAB PO SCH (21:00)
--- NOTE | 2023-12-18 | NUR ---
CHECKED O2 SAT. 87 RA. STARTED O2 AT 2L NC. RT NOTIFIED.
[2023-12-18 03:52] VITALS: BP 118/70; PULSE 90; TEMP 97.4
--- NOTE | 2023-12-18 06:56 | NUR ---
PT CONTINUES TO BE DROWSY. WAKES EASILY TO VOICE. ORIENTEDX4. SPEECH ALITTLE MUMBLED. PT DENIES ANY CHANGES NEUROLOGICALLY THROUGHT THE NIGHT. PT REMINDED TO CALL STAFF IF HAVING ANY SYMPTOMS BEFORE OR ANY CHANGE IN STATUS. BEDSIDE SHIFT REPORT TO SARA LATHAM RN. NO QUESTIONS.
[2023-12-18 07:27] VITALS: BP_SYST 118
[2023-12-18 08:00] VITALS: BP 109/72; PULSE 104; TEMP 97.5
--- NOTE | 2023-12-18 10:55 | NUR ---
pt going down to MRI at this time.
[2023-12-18] MEDS ORDERED: ALPRAZolam 0.25 MG TAB PO ONE (13:15)
--- NOTE | 2023-12-18 14:49 | NUR ---
Prototype Carpenter met with patient and his , Rosio at bedside. Rosio is tearful and stated that after yesterday's event, she does not feel comfortable taking patient home. CATHIE reviewed Medicare.gov list of SNF options and patient would like referrals sent to [facility]. CATHIE faxed referrals to both. CATHIE also provided update to Francisco at [facility]. CATHIE spoke with Yuridia, [facility] Director who advised it was confirmed patient had another stroke and will be staying on the rehab unit.
[2023-12-18 16:22] VITALS: BP 100/62; PULSE 88; TEMP 97.8
--- NOTE | 2023-12-18 18:01 | NUR ---
PT RESTING IN BED THIS EVENING, EASILY AROUSABLE. NEURO CHECKS CONTINUED Q2HRS THROUGHOUT THE DAY, BILAT ARM AND LEGS STRENGTH IMPROVED, RECORDS MANAGEMENT TECHNICIAN STRONG AND EQUAL. PT ABLE TO AMBULATE X1 ASSIST UTILIZING GAITBELT AND WALKER. PT HAD AN MRI DONE THIS MORNING SHOWING ACUTE INFARCT. PT CONTINUES TO TAKE MEDICATIONS CRUSHED WITH APPLESAUCE, TOLERATING WELL. PT DID COMPLAIN OF FEELING ANXIOUS THIS MORNING, ORDER FOR ONE TIME DOSE OF XANAX 0.125MG GIVEN, EFFECTIVE. PT WAS PLACED ON ROOM AIR OVERNIGHT BUT PLACED ON ROOM AIR THIS MORNING, O2SAT REMAINED OVER 95% WHEN AWAKE, PLACED BACK ON O2 VIA NC WHILE RESTING THIS EVENING.
[2023-12-18 19:00] VITALS: BP_SYST 100
--- NOTE | 2023-12-18 20:00 | NUR ---
PT RESTING IN BED. A&OX4. O2 AT 1L N/C WHILE HE TOOK A NAP PRIOR TO SHIFT CHANGE. PT HAS NO RESP DISTRESS. PT HAS MILD LT ARM WEAKNESS. DENIES PAIN. NOTIFIED DR KAMARA TO REQUEST DC NEUROCHACKS Q2HR. NEW ORDER DC NEUROCHECKS. CALL LIGHT IN REACH. BED ALARM SET.
[2023-12-19] VITALS (7 sets, daily range): BP systolic 78–130; BP diastolic 42–70; PULSE 67–93; TEMP 97.4–98.6
--- NOTE | 2023-12-19 06:18 | NUR ---
PT HAD A RESTFUL NIGHT. NO CHANGE IN NEURO STATUS THROUGH THE NIGHT. NO NEEDS THIS AM.
--- NOTE | 2023-12-19 07:04 | NUR ---
Shift report received from night RN. Pt sleeping supine in bed w/ even & unlabored resps. HOB elevated to approx 30 degrees. Call light in reach. Fall precautions in place.
[2023-12-19 08:09] LABS: INR 1.4 (0.8-3.0); PROTHROMBIN TIME 15.4 SECONDS (9.7-12.8)
[2023-12-19] MEDS ORDERED: ALPRAZolam 0.25 MG TAB PO PRN (11:00)
--- NOTE | 2023-12-19 11:48 | NUR ---
Pt up to ambulate off unit w/ PT.
--- NOTE | 2023-12-19 12:07 | NUR ---
Doper followed up with both Yang at [facility] and Leidy at [facility]. Both are following referral and would like to be kept updated on potential DC date.
--- NOTE | 2023-12-19 12:49 | NUR ---
Pt sitting up in recliner eating lunch independently. & other visitors are at the bedside. Pt denies pain/discomfort. Denies other needs. Call light in reach. Chair alarm on.
[2023-12-19] MEDS ORDERED: NS 1,000 ML IV SCH (13:45)
[2023-12-19] MEDS ORDERED: NS 500 ML IV ONE (14:00)
--- NOTE | 2023-12-19 14:09 | NUR ---
Pt reporting feeling heaviness in both legs & left arm approx 30 minutes ago. Pt denying TOUSSAINT, chest pain, vision changes, numbness/tingling in extremities, nausea. Pt remaining a/o x4. Dr. Goldstein & Hospitalist notified. See emar for changes. Pt lying in trendelenburg in position per hospitalist for BP of 78/42. Will recheck BP & will continue to monitor. Fluid bolus being administered per order to Left Wrist IV. Pt has his call light in reach. Bed alarm on.
[2023-12-19 14:13] LABS: BASO % 0.2 % (0.0-2.0); EOS # 0.1 K/mm3 (0.0-0.7); EOS % 2.3 % (0.0-4.0); GRAN % 83.1 % (42.2-75.2); HEMATOCRIT 47.9 % (42.0-52.0); HEMOGLOBIN 15.4 g/dl (13.5-18.0); LYMPH # 0.5 K/mm3 (1.2-3.4); LYMPH % 7.9 % (20.0-51.0); MEAN CELL VOLUME 105 fl (80.0-100.0); MEAN CORPUSCULAR HEMOGLOBIN 34 pg (27-31); MEAN CORPUSCULAR HGB CONC 32 g/dl (33.0-37.0); MEAN PLATELET VOLUME 11.5 fl (7.4-10.4); MONO # 0.4 K/mm3 (0.1-0.6); MONO % 6.2 % (1.7-9.3); PLATELET COUNT 71 K/mm3 (130-400); RED BLOOD COUNT 4.57 M/mm3 (4.20-5.60); REDCELL DISTRIBUTION WIDTH-CV 14.3 % (11.5-14.5)
[2023-12-19 14:18] LABS: CALCIUM 8.4 mg/dL (8.4-10.2); CREATININE, serum 0.77 mg/dL (0.72-1.25); POTASSIUM 4.6 mmol/L (3.5-4.5)
--- NOTE | 2023-12-19 15:17 | NUR ---
Pt resting supine in bed. Remains on IVF to Left Wrist w/o sx of infiltration. Pt reports feeling better & no longer feeling the heaviness in extremities. Pt denies chest pain, dizziness, difficulty breathing, TOUSSAINT. Pt denies general pain/discomfort. Other needs denied. Call light in reach. Bed alarm on. remains at the bedside.
--- NOTE | 2023-12-19 17:09 | NUR ---
Pt sitting up in bed eating dinner independently. No changes in pt condition at this time. SBP up to 111. Pt denies pain/discomfort. Other needs denied. Call light in reach. Bed alarm on.
--- NOTE | 2023-12-19 19:31 | NUR ---
Received change of shift report from day shift nurse. Patient resting in bed, no needs reported at this time. Exit alarm on, call light in reach. IV infusion completed, IV saline locked.
[2023-12-20 05:08] VITALS: BP 134/76; BP 134/761; PULSE 98; TEMP 97.4
[2023-12-20 07:10] VITALS: BP_SYST 134
--- NOTE | 2023-12-20 07:11 | NUR ---
Shift report received from night RN. Pt sleeping supine in bed. HOB elevated to approx 30 degrees. Resps are even & unlabored. Call light in reach. Bed alarm on.
[2023-12-20 07:59] LABS: INR 1.7 (0.8-3.0); PROTHROMBIN TIME 18.6 SECONDS (9.7-12.8)
--- NOTE | 2023-12-20 08:25 | NUR ---
Warfarin Follow-up Pharmacy Note Current regimen: Warfarin 4 mg po qHS, with additional 2 mg x1 yesterday for a total dose of 6 mg on 12/19/23. LABS: INR 1.7 <- 1.4 Changes in therapy: Increase dose to Warfarin 6 mg po qHS tonight. Pharmacy will continue to monitor INR levels.
--- NOTE | 2023-12-20 10:16 | NUR ---
Pt up in wheelchair for Group Therapy. Pt off unit.
--- NOTE | 2023-12-20 13:16 | NUR ---
Pt sitting up on EOB visiting w/ his & friend. Denies any needs at this time. Call light in reach. Bed alarm on.
[2023-12-20 17:30] VITALS: BP 114/69; PULSE 101; TEMP 97.4
[2023-12-20 19:29] VITALS: BP_SYST 114
--- NOTE | 2023-12-20 19:30 | NUR ---
Received change of shift report from day shift nurse. Patient resting in bed, exit alarm on, call light in reach. Patient denies any needs at time of report.
--- NOTE | 2023-12-20 22:30 | NUR ---
PATIENT REPORTED BLEEDING FROM L NARE TO STAFF THAT RESOLVED WITH PRESSURE TO BRIDGE OF NOSE AND USE OF FACIAL TISSUE TO L NOSTRIL. PATIENT DENIES ANY COMPLAINTS POST NOSE BLEED, DENIES CHEST PAIN/SOA/HEADACHE AT THIS TIME. BREATHING EVEN AND NONLABORED, EXIT ALARM ON, CALL LIGHT IN REACH.
--- NOTE | 2023-12-21 05:10 | NUR ---
PER PCT REPORT, PATIENT UPON AWAKENING REQUESTING ASSIST TO AMB TO BATHROOM, PATIENT INITALLY VERBALIZED THAT HE DID NOT KNOW WHERE HE WAS AT UNTIL HE WAS REORIENTED. OBSERVED BY PCT THAT PATIENT WAS OCCASIONALLY MUMBLE INCOHERENTLY WHEN AMB BACK TO BED BUT NO REPORTS OF EXTREMITIES HEAVY FEELING AND NO REPORTS OF CHEST PAIN OR HEAD PAIN OR DIZZINESS. NO FURTHER OBSERVATIONS OF BLEEDING FROM NARES AT THIS TIME.
[2023-12-21 05:57] VITALS: BP 133/78; PULSE 98; TEMP 98.2
[2023-12-21 06:51] VITALS: BP_SYST 133
--- NOTE | 2023-12-21 06:54 | NUR ---
CHANGE OF SHIFT REPORT GIVEN TO DAY SHIFT NURSESTEVE.
--- NOTE | 2023-12-21 07:07 | NUR ---
CHANGE OF SHIFT REPORT GIVEN TO DAY SHIFT NURSESTEVE.
[2023-12-21 08:04] LABS: PROTHROMBIN TIME 21.6 SECONDS (9.7-12.8)
--- NOTE | 2023-12-21 15:54 | NUR ---
Pt resting supine in bed watching a football game w/ his . Pt denies pain or discomfort. Denies other needs. Call light in reach. Bed alarm on. Pt felt heaviness in his left leg this morning that has since resolved. Pt spent some time sitting up on EOB visiting w/ friends this morning. Pt has had no c/o pain this shift so far.
[2023-12-21 17:09] VITALS: BP 115/67; PULSE 101; TEMP 97.7
--- NOTE | 2023-12-21 18:27 | NUR ---
Pt sleeping supine in bed w/ even & unlabored resps. Call light in reach. Bed alarm on.
[2023-12-21 19:18] VITALS: BP_SYST 115
--- NOTE | 2023-12-21 19:19 | NUR ---
RECEIVED CHANGE OF SHIFT REPORT FROM DAY SHIFT NURSE. PATIENT RESTING IN BED, VISITORS IN ROOM. EXIT ALARM ON, CALL LIGHT IN REACH. DENIES ANY NEEDS AT THIS TIME.
--- NOTE | 2023-12-22 01:44 | NUR ---
Patient resting in bed, eyes closed, breathing even and nonlabored. Exit alarm on, call light in reach. Does not wake during nursing rounds.
[2023-12-22 05:32] VITALS: BP 134/90; PULSE 113; TEMP 97.9
[2023-12-22 07:00] VITALS: BP_SYST 134
--- NOTE | 2023-12-22 07:23 | NUR ---
CHANGE OF SHIFT REPORT GIVEN TO DAY SHIFT NURSEMATTI.
[2023-12-22 07:37] LABS: INR 2.2 (0.8-3.0); PROTHROMBIN TIME 23.8 SECONDS (9.7-12.8)
--- NOTE | 2023-12-22 07:37 | NUR ---
RECIEVED REPORT FROM DELIO NERI.
--- NOTE | 2023-12-22 12:06 | NUR ---
PT ALERT AND ORIENTED, A LITTLE SLEEPY THIS AM. IN PLEASANT MOOD AND SMILING. REPORTED TO PHYSICIAN THAT SOMEONE CAME IN HIS ROOM THIS AM AND TOLD HIM HE WAS GOING HOME, I DIDNT SEE ANYONE ROUND ON HIM. SHIFT ASSESSMENT COMPLETE SKIN IS VERY DRY, LOTION APPLIED TO LEGS. MEDICATED PER EMAR DENIES PAIN AT THIS TIME. CALL LIGHT WITHIN REACH, BED ALARM SET.
[2023-12-22 14:31] VITALS: BP 118/69; PULSE 91; TEMP 97.4
--- NOTE | 2023-12-22 17:32 | NUR ---
machine clothing worker was notified patient may be ready for discharge on Friday to either [facility] or [facility] for SNF. CATHIE spoke with patient's whom expressed [facility] is the preference. CATHIE contacted [facility] whom expressed they would need to review but could potentially accept Friday. CATHIE secure emailed updates on patient to [facility]. CATHIE was notified by [facility] that they are able to accept patient on Friday. CATHIE updated the patient, his and his daughter, all are excited for patient. No concerns or questions at this time. Discharge plan: [facility]
[2023-12-22 17:49] VITALS: BP 128/70; PULSE 97
[2023-12-22 19:00] VITALS: BP_SYST 128
--- NOTE | 2023-12-22 21:00 | NUR ---
UPON SHIFT ASSESSMENT, ARUN PAGAN" WAS AWAKE IN BED. DYSPAHGIA STILL NOTEABLE PATIENT'S ANSWERS TO ASSESSMENT QUESTIONS WERE RASPY AND WHISPERED.LUNG SOUNDS CLEAR AND VS WNL. NEUROS GOOD AND GENE IS AXO X 4. APPEARANCE IS MALNOURISHED. NEW MEPIPLEX PLACED ON SACRUM-BLANCHABLE ERYTHEMA. PATIENT DENIES PAIN OR NEEDS AT THIS TIME. CALL LIGHT WITHIN REACH, BEDALARM ON.
[2023-12-23 06:09] VITALS: BP 133/84; PULSE 70; TEMP 97.5
[2023-12-23 06:47] LABS: INR 2.4 (0.8-3.0); PROTHROMBIN TIME 25.9 SECONDS (9.7-12.8)
[2023-12-23 07:00] VITALS: BP_SYST 133
--- NOTE | 2023-12-23 10:26 | NUR ---
Has lack of transportation kept you from medical appts, meetings, work, or from getting things needed for daily living? no How often do you feel lonely or isolated from those around you? rarely Over the past 5 days, how much of the time has pain made it hard for you to sleep? no pain Over the past 5 days, how often have you limited your participation in therapy due to pain? no pain Over the past 5 days, how often have you limited your day-to-day activities because of pain? no pain
--- NOTE | 2023-12-23 15:33 | NUR ---
steam trap worker secure emailed clinical updates to Leidy at [facility]. SW was notified patient will be ready for discharge to SNF tomorrow. Discharge plan: [facility]
[2023-12-23 17:24] VITALS: BP 115/70; PULSE 88; TEMP 97.5
[2023-12-23 20:05] VITALS: BP_SYST 115
[2023-12-24] MEDS ORDERED: Ondansetron 4 MG/2 ML VIAL IV PRN (03:00)
[2023-12-24 05:47] VITALS: BP 134/80; PULSE 80; TEMP 97.6
[2023-12-24 07:20] VITALS: BP_SYST 134
--- NOTE | 2023-12-24 07:21 | NUR ---
Shift report received from night RN. Pt sleeping supine in bed. HOB elevated to approx 30 degrees. No events reported overnight. Pt is pending DC to [facility] today per report. Call light in reach. Fall precautions in place.
[2023-12-24] MEDS ORDERED: COUMADIN 6MG6 MG/TAB PO (09:22)
--- NOTE | 2023-12-24 10:42 | NUR ---
Transportation here to transport pt to [facility]. Report given to DELIO Nolan. Pt escorted off unit via wheelchair.
--- NOTE | 2023-12-24 17:48 | NUR ---
community health outreach worker scheduled patient's transportation to [facility] for today at 10:30 am. SW notified patient, doctor and nurse. SW met with patient and his and reviewed the important message from [employer]. Patient understood and requested his /DPOA-HC sign the form for him. CATHIE made a copy, placed original in the chart and provided the copy to the patient. CATHIE secure emailed clincial updates and discharge orders to [facility]. DIscharge plan: SNF
--- NOTE | 2023-12-25 14:37 | NUR ---
Discharge QIM scores were reviewed by the team. Code of 4 chosen for eating was determined by team discussion to be the most usual performance for this patient during the discharge assessment period. Code of 4 chosen for toileting hygiene was determined by team discussion to be the most usual performance for this patient during the discharge assessment period. Code of 6 chosen for toilet transfers was determined by team discussion to be the most usual performance for this patient during the discharge assessment period. Code of 3 chosen for putting on/taking off footwear was determined by team discussion to be the most usual performance for this patient during the discharge assessment period. Code of 6 chosen for sit to lying was determined by team discussion to be the most usual performance for this patient during the discharge assessment period. Code of 6 chosen for lying to sitting was determined by team discussion to be the most usual performance for this patient during the discharge assessment period. Code of 6 chosen for sit to stand was determined by team discussion to be the most usual performance for this patient during the discharge assessment period. Code of 6 chosen for walking 10 feet was determined by team discussion to be the most usual performance for this patient during the discharge assessment period. Code of 6 chosen for walking 50 feet w/ 2 turns was determined by team discussion to be the most usual performance before interventions for this patient during the discharge assessment period.--PD Aaron
== END 2023-12-24 10:41 | DRG 947 ==
PROVIDERS: Hospitalist; Physician Assistant; ADMIT Physical Medicine & Rehabilitation Sports Medicine
DX: R53.81 Other malaise (principal); A41.9 Sepsis, unspecified organism; J96.01 Acute respiratory failure with hypoxia; J96.02 Acute respiratory failure with hypercapnia; J69.0 Pneumonitis due to inhalation of food and vomit; R65.20 Severe sepsis without septic shock; I63.9 Cerebral infarction, unspecified; G81.94 Hemiplegia, unspecified affecting left nondominant side; R41.4 Neurologic neglect syndrome; I82.C11 Acute embolism and thrombosis of right internal jugular vein; T79.7XXA Traumatic subcutaneous emphysema, initial encounter; R26.89 Other abnormalities of gait and mobility; D86.9 Sarcoidosis, unspecified; J47.9 Bronchiectasis, uncomplicated; I25.10 Atherosclerotic heart disease of native coronary artery without angina pectoris; I50.9 Heart failure, unspecified; I48.91 Unspecified atrial fibrillation; R79.83 Abnormal findings of blood amino-acid level; D69.6 Thrombocytopenia, unspecified; E87.5 Hyperkalemia; E78.5 Hyperlipidemia, unspecified; Z79.01 Long term (current) use of anticoagulants; Z95.1 Presence of aortocoronary bypass graft; Z79.899 Other long term (current) drug therapy; Z74.09 Other reduced mobility; Z79.82 Long term (current) use of aspirin; Z88.0 Allergy status to penicillin; I95.9 Hypotension, unspecified; Z66 Do not resuscitate; R13.10 Dysphagia, unspecified
CPT/HCPCS: A9270; A9284; J7030; J7040; J8540; Q3014; Q9967